=== PATIENT | male | born 1995 | race Caucasian/White ===

== ENCOUNTER 2020-01-30 | Emergency (ER) | payer MEDICAID ==
[~2020-01-30] MED LIST: AZTH250C PO; IBP800T PO
--- OUTSIDE RECORDS SUMMARY | 2020-01-30 00:08 | XMS REPORT ---
Author Author Balbir Jackson Doctor Organization [facility] Address Unknown Phone Unavailable Care Team Providers Care Digital Art Director Name Role Phone Migration, Doctor Unavailable Unavailable PROBLEMS Type Condition ICD9-CM Code IPV63-HA Code Onset Dates Condition S tatus SNOMED Code Problem Need for prophylactic vaccination and inoculation, Influen za V04.81 Active 129853374 Problem Acute sinusitis, unspecified 461.9 A ctive 04346399 Problem Nondependent tobacco use disorder 305.1 Active 422143559 Problem Basic learning disability, reading F81.0 Active 277461777 Problem Observation of other suspected mental condition V71.09 Active 028233808 Problem Constipation, unspecified constipation type K59.00 Active 25500154 Problem Manic disorder, recurrent episode, unspecified 296.10 Active 854339528 Problem Problems related to other legal circumstances Z65. 3 Active 07673975 Problem Unspecified intellectual disabilities F79 Active 45679015 Problem Anxiety disorder, unspecified F41.9 Active 277167572 ALLERGIES No Information ENCOUNTERS Encounter Location Date Diagnosis [facility] [id number] [place] [address] November, Pharyngitis due to Streptococcus species J02.0 [facility] [address] [facility] [id number] [address] [place] [address] Jan, Abdominal pain R10.9 and Con stipation, unspecified constipation type K59.00 [facility] [address] [id number] [place] [address] Mar, Anxiety disorder, unspecified F41.9 ; Ba sic learning disability, reading F81.0 ; Unspecified intellectual disabilities F79 and Problems related to other legal circumstances Z65.3 [facility] [id number] [place] [address] Oct, [facility] [address] [address] Oct, [facility] [address] [facility] [id number] [place] [address] Jul, [facility] [address] [id number] [place] [address] Jul, [facility] [address] [id number] [place] [address] Mar, [facility] [address] [id number] [place] [address] Mar, [facility] [address] [facility] [id number] [place] [address] Dec, [facility] [address] [id number] [place] [address] Dec, [facility] [address] [id number] [place] [address] Oct, [facility] [address] [id number] [place] [address] Oct, [facility] [address] [id number] [place] [address] Oct, [facility] [address] [id number] [place] [address] Oct, [facility] [address] [id number] [place] [address] Sep, [facility] [address] [id number] [place] [address] Sep, [facility] [address] [id number] [place] [address] Sep, [facility] [address] [id number] [place] [address] Sep, [facility] [address] [id number] [place] [address] Sep, [facility] [address] [id number] [place] [address] Sep, [facility] [address] [id number] [place] [address] Sep, [facility] [address] [id number] [place] [address] Sep, [facility] [address] [id number] [place] [address] Aug, [facility] [address] [id number] [place] [address] Aug, [facility] [id number] [place] [address] Aug, [facility] [address] [id number] [place] [address] Aug, [facility] [address] [id number] [place] [address] May, [facility] [id number] [place] [address] May, [facility] [id number] [place] [address] Jan, [facility] [address] [id number] [place] [address] Jan, [facility] [address] [id number] [place] [address] Jan, [facility] [address] [id number] [place] [address] Jan, [facility] [address] [id number] [place] [address] Jul, [facility] [address] [id number] [place] [address] May, IMMUNIZATIONS No Known Immunizations SOCIAL HISTORY Never Assessed REASON FOR VISIT PLAN OF CARE VITAL SIGNS MEDICATIONS No Known Medications RESULTS No Results PROCEDURES No Known procedures INSTRUCTIONS MEDICATIONS ADMINISTERED No Known Medications MEDICAL (GENERAL) HISTORY Type Description Date Medical History vasectomy
--- OUTSIDE RECORDS SUMMARY | 2020-01-30 00:08 | XMS REPORT ---
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 3 Active 19813549 Problem Unspecified intellectual disabilities F79 Active 94455440 Problem Anxiety disorder, unspecified F41.9 Active 214972979 ALLERGIES No Information ENCOUNTERS Encounter Location Date Diagnosis [facility] [place] [id number] [place] [address] November, Pharyngitis due to Streptococcus species J02.0 [facility] [address] [facility] [id number] [address] [address] Jan, Abdominal pain R10.9 and Con stipation, unspecified constipation type K59.00 [facility] [place] [id number] [place] [address] Mar, Anxiety disorder, unspecified F41.9 ; Ba sic learning disability, reading F81.0 ; Unspecified intellectual disabilities F79 and Problems related to other legal circumstances Z65.3 [facility] [place] [address] [address] Oct, [facility] [address] [id number] [place] [address] Oct, [facility] [address] [id number] [place] [address] Jul, [facility] [address] [id number] [place] [address] Jul, [facility] [address] [id number] [place] [address] Mar, [facility] [address] [id number] [place] [address] Mar, [facility] [address] [id number] [place] [address] Dec, [facility] [address] [id number] [place] [address] Dec, [facility] [address] [id number] [place] [address] Oct, [facility] [address] [id number] [place] [address] Oct, [facility] [address] [id number] [place] [address] Oct, [facility] [address] [id number] [place] [address] Oct, [facility] [address] [id number] [place] [address] Sep, [facility] [address] [id number] [place] [address] Sep, [facility] [address] [id number] [place] [address] Sep, [facility] [address] [id number] [place] [address] Sep, [facility] [address] [id number] [place] [address] Sep, [facility] [address] [id number] [place] [address] Sep, [facility] [place] [address] [id number] [place] [address] Sep, [facility] [place] [address] [id number] [place] [address] Sep, [facility] [place] [address] [id number] [place] [address] Aug, [facility] [place] [id number] [place] [address] Aug, [facility] [place] [id number] [place] [address] Aug, [facility] [place] [id number] [place] [address] Aug, [facility] [place] [id number] [place] [address] May, [facility] [place] [id number] [place] [address] May, [facility] [place] [id number] [place] [address] Jan, [facility] [place] [id number] [place] [address] Jan, [facility] [place] [address] [id number] [place] [address] Jan, [facility] [place] [id number] [place] [address] Jan, [facility] [place] [address] [id number] [place] [address] Jul, [facility] [place] [id number] [place] [address] May, IMMUNIZATIONS No Known Immunizations SOCIAL HISTORY Never Assessed REASON FOR VISIT PLAN OF CARE VITAL SIGNS MEDICATIONS No Known Medications RESULTS No Results PROCEDURES No Known procedures INSTRUCTIONS MEDICATIONS ADMINISTERED No Known Medications MEDICAL (GENERAL) HISTORY Type Description Date Medical History vasectomy
--- OUTSIDE RECORDS SUMMARY | 2020-01-30 00:08 | XMS REPORT ---
Author Author Balbir GOETZ Organization [facility] Address [address] [place] [address] Care Team Providers Care Computer Repairer Name Role Phone BISHNU IAN Unavailable PROBLEMS Type Condition ICD9-CM Code VZL88-IV Code Onset Dates Condition S tatus SNOMED Code Problem Need for prophylactic vaccination and inoculation, Influen za V04.81 Active 341119601 Problem Acute sinusitis, unspecified 461.9 A ctive 46687550 Problem Nondependent tobacco use disorder 305.1 Active 472739932 Problem Basic learning disability, reading F81.0 Active 716588154 Problem Observation of other suspected mental condition V71.09 Active 037329924 Problem Constipation, unspecified constipation type K59.00 Active 74311494 Problem Manic disorder, recurrent episode, unspecified 296.10 Active 033268558 Problem Problems related to other legal circumstances Z65. 3 Active 43294496 Problem Unspecified intellectual disabilities F79 Active 97895130 Problem Anxiety disorder, unspecified F41.9 Active 633664740 ALLERGIES No Information ENCOUNTERS Encounter Location Date Diagnosis [facility] [id number] [place] [address] November, Pharyngitis due to Streptococcus species J02.0 [facility] [address] [facility] [id number] [address] [address] Jan, Abdominal pain R10.9 and Con stipation, unspecified constipation type K59.00 [facility] [id number] [place] [address] Mar, Anxiety disorder, unspecified F41.9 ; Ba sic learning disability, reading F81.0 ; Unspecified intellectual disabilities F79 and Problems related to other legal circumstances Z65.3 [facility] [address] [address] Oct, [facility] [address] [id number] [place] [address] Oct, [facility] [address] [id number] [place] [address] Jul, [facility] [address] [id number] [place] [address] Jul, [facility] [address] [id number] [place] [address] Mar, [facility] [address] [id number] [place] [address] Mar, [facility] [address] [id number] [place] [address] Dec, [facility] [address] [id number] [place] [address] Dec, [facility] [address] [id number] [place] [address] Oct, [facility] [address] [id number] [place] [address] Oct, [facility] [address] [id number] [place] [address] Oct, [facility] [address] [id number] [place] [address] Oct, [facility] [address] [id number] [place] [address] Sep, [facility] [address] [id number] [place] [address] Sep, [facility] [address] [id number] [place] [address] Sep, [facility] [address] [id number] [place] [address] Sep, [facility] [address] [id number] [place] [address] Sep, [facility] [address] [id number] [place] [address] Sep, [facility] [address] [id number] [place] [address] Sep, [facility] [address] [id number] [place] [address] Sep, [facility] [address] [id number] [place] [address] Aug, [facility] [id number] [place] [address] Aug, [facility] [id number] [place] [address] Aug, [facility] [id number] [place] [address] Aug, [facility] [id number] [place] [address] May, [facility] [id number] [place] [address] May, [facility] [id number] [place] [address] Jan, [facility] [id number] [place] [address] Jan, [facility] [address] [id number] [place] [address] Jan, [facility] [id number] [place] [address] Jan, [facility] [address] [id number] [place] [address] Jul, [facility] [id number] [place] [address] May, IMMUNIZATIONS No Known Immunizations SOCIAL HISTORY Never Assessed REASON FOR VISIT PLAN OF CARE VITAL SIGNS MEDICATIONS No Known Medications RESULTS No Results PROCEDURES Procedure Date Ordered Result Body Site PSYCHO TESTING BY HANDYMAN Sep 07, 2013 INSTRUCTIONS MEDICATIONS ADMINISTERED No Known Medications MEDICAL (GENERAL) HISTORY Type Description Date Medical History vasectomy
--- OUTSIDE RECORDS SUMMARY | 2020-01-30 00:08 | XMS REPORT ---
Author Author Balbir GOETZ Organization [facility] [place] Address [address] [place] [address] Care Team Providers Care Addresser Name Role Phone BISHNU IAN Unavailable PROBLEMS Type Condition ICD9-CM Code TDI21-ZW Code Onset Dates Condition S tatus SNOMED Code Problem Need for prophylactic vaccination and inoculation, Influen za V04.81 Active 961992663 Problem Acute sinusitis, unspecified 461.9 A ctive 89680824 Problem Nondependent tobacco use disorder 305.1 Active 473080786 Problem Basic learning disability, reading F81.0 Active 546568911 Problem Observation of other suspected mental condition V71.09 Active 673496933 Problem Constipation, unspecified constipation type K59.00 Active 30356027 Problem Manic disorder, recurrent episode, unspecified 296.10 Active 793751000 Problem Problems related to other legal circumstances Z65. 3 Active 27989727 Problem Unspecified intellectual disabilities F79 Active 59514129 Problem Anxiety disorder, unspecified F41.9 Active 802554395 ALLERGIES No Information ENCOUNTERS Encounter Location Date Diagnosis [facility] [place] [id number] [place] [address] November, Pharyngitis due to Streptococcus species J02.0 [facility] [address] [facility] [id number] [address] [address] Jan, Abdominal pain R10.9 and Con stipation, unspecified constipation type K59.00 [facility] [place] [id number] [place] [address] Mar, Anxiety disorder, unspecified F41.9 ; Ba sic learning disability, reading F81.0 ; Unspecified intellectual disabilities F79 and Problems related to other legal circumstances Z65.3 [facility] [place] [address] [address] Oct, [facility] [address] [id number] [place] [address] Oct, [facility] [address] [id number] [place] [address] Jul, [facility] [address] [id number] [place] [address] Jul, [facility] [address] [id number] [place] [address] Mar, [facility] [address] [id number] [place] [address] Mar, [facility] [address] [id number] [place] [address] Dec, [facility] [address] [id number] [place] [address] Dec, [facility] [address] [id number] [place] [address] Oct, [facility] [address] [id number] [place] [address] Oct, [facility] [address] [id number] [place] [address] Oct, [facility] [address] [id number] [place] [address] Oct, [facility] [address] [id number] [place] [address] Sep, [facility] [address] [id number] [place] [address] Sep, [facility] [address] [id number] [place] [address] Sep, [facility] [address] [id number] [place] [address] Sep, [facility] [address] [id number] [place] [address] Sep, [facility] [address] [id number] [place] [address] Sep, [facility] [place] [address] [id number] [place] [address] Sep, [facility] [place] [address] [id number] [place] [address] Sep, [facility] [place] [address] [id number] [place] [address] Aug, [facility] [place] [id number] [place] [address] Aug, [facility] [place] [id number] [place] [address] Aug, [facility] [place] [id number] [place] [address] Aug, [facility] [place] [id number] [place] [address] May, [facility] [place] [id number] [place] [address] May, [facility] [place] [id number] [place] [address] Jan, [facility] [place] [id number] [place] [address] Jan, [facility] [place] [address] [id number] [place] [address] Jan, [facility] [place] [id number] [place] [address] Jan, [facility] [place] [address] [id number] [place] [address] Jul, [facility] [place] [id number] [place] [address] May, IMMUNIZATIONS No Known Immunizations SOCIAL HISTORY Never Assessed REASON FOR VISIT PLAN OF CARE VITAL SIGNS MEDICATIONS No Known Medications RESULTS No Results PROCEDURES No Known procedures INSTRUCTIONS MEDICATIONS ADMINISTERED No Known Medications MEDICAL (GENERAL) HISTORY Type Description Date Medical History vasectomy
--- OUTSIDE RECORDS SUMMARY | 2020-01-30 00:08 | XMS REPORT ---
Author Author Balbir GOETZ Organization [facility] Address [address] [place] [address] Care Team Providers Care Assemblies And Installations Inspector Name Role Phone BISHNU IAN Unavailable PROBLEMS Type Condition ICD9-CM Code FHV16-TO Code Onset Dates Condition S tatus SNOMED Code Problem Need for prophylactic vaccination and inoculation, Influen za V04.81 Active 451286767 Problem Acute sinusitis, unspecified 461.9 A ctive 98328697 Problem Nondependent tobacco use disorder 305.1 Active 258730638 Problem Basic learning disability, reading F81.0 Active 680613211 Problem Observation of other suspected mental condition V71.09 Active 665385048 Problem Constipation, unspecified constipation type K59.00 Active 53909896 Problem Manic disorder, recurrent episode, unspecified 296.10 Active 003137738 Problem Problems related to other legal circumstances Z65. 3 Active 01294733 Problem Unspecified intellectual disabilities F79 Active 13808530 Problem Anxiety disorder, unspecified F41.9 Active 351825525 ALLERGIES No Information ENCOUNTERS Encounter Location Date Diagnosis [facility] [id number] [place] [address] November, Pharyngitis due to Streptococcus species J02.0 [facility] [address] [facility] [id number] [address] [address] Jan, Abdominal pain R10.9 and Con stipation, unspecified constipation type K59.00 [facility] [id number] [place] [address] Mar, Anxiety disorder, unspecified F41.9 ; Ba sic learning disability, reading F81.0 ; Unspecified intellectual disabilities F79 and Problems related to other legal circumstances Z65.3 [facility] [address] [address] Oct, [facility] [address] [id number] [place] [address] Oct, [facility] [address] [id number] [place] [address] Jul, [facility] [address] [id number] [place] [address] Jul, [facility] [address] [id number] [place] [address] Mar, [facility] [address] [id number] [place] [address] Mar, [facility] [address] [id number] [place] [address] Dec, [facility] [address] [id number] [place] [address] Dec, [facility] [address] [id number] [place] [address] Oct, [facility] [address] [id number] [place] [address] Oct, [facility] [address] [id number] [place] [address] Oct, [facility] [address] [id number] [place] [address] Oct, [facility] [address] [id number] [place] [address] Sep, [facility] [address] [id number] [place] [address] Sep, [facility] [address] [id number] [place] [address] Sep, [facility] [address] [id number] [place] [address] Sep, [facility] [address] [id number] [place] [address] Sep, [facility] [address] [id number] [place] [address] Sep, [facility] [address] [id number] [place] [address] Sep, [facility] [address] [id number] [place] [address] Sep, [facility] [address] [id number] [place] [address] Aug, [facility] [id number] [place] [address] Aug, [facility] [id number] [place] [address] Aug, [facility] [id number] [place] [address] Aug, [facility] [id number] [place] [address] May, [facility] [id number] [place] [address] May, [facility] [id number] [place] [address] Jan, [facility] [id number] [place] [address] Jan, [facility] [address] [id number] [place] [address] Jan, [facility] [id number] [place] [address] Jan, [facility] [address] [id number] [place] [address] Jul, [facility] [id number] [place] [address] May, IMMUNIZATIONS No Known Immunizations SOCIAL HISTORY Never Assessed REASON FOR VISIT PLAN OF CARE VITAL SIGNS MEDICATIONS No Known Medications RESULTS No Results PROCEDURES Procedure Date Ordered Result Body Site PSYTX PT&/FAMILY 30 MINUTES Sep 21, 2013 INSTRUCTIONS MEDICATIONS ADMINISTERED No Known Medications MEDICAL (GENERAL) HISTORY Type Description Date Medical History vasectomy
--- OUTSIDE RECORDS SUMMARY | 2020-01-30 00:08 | XMS REPORT ---
Author Author Balbir GOETZ Organization [facility] Address [address] [place] [address] Care Team Providers Care Research Affiliate Name Role Phone BISHNU IAN Unavailable PROBLEMS Type Condition ICD9-CM Code MBC69-JE Code Onset Dates Condition S tatus SNOMED Code Problem Need for prophylactic vaccination and inoculation, Influen za V04.81 Active 208845133 Problem Acute sinusitis, unspecified 461.9 A ctive 86108142 Problem Nondependent tobacco use disorder 305.1 Active 537979805 Problem Basic learning disability, reading F81.0 Active 233847474 Problem Observation of other suspected mental condition V71.09 Active 888692986 Problem Constipation, unspecified constipation type K59.00 Active 88407349 Problem Manic disorder, recurrent episode, unspecified 296.10 Active 179020722 Problem Problems related to other legal circumstances Z65. 3 Active 99316335 Problem Unspecified intellectual disabilities F79 Active 96459499 Problem Anxiety disorder, unspecified F41.9 Active 517854615 ALLERGIES No Information ENCOUNTERS Encounter Location Date Diagnosis [facility] [id number] [place] [address] November, Pharyngitis due to Streptococcus species J02.0 [facility] [address] [facility] [id number] [place] [address] Jan, Abdominal pain R10.9 and Con stipation, unspecified constipation type K59.00 [facility] [id number] [place] [address] Mar, Anxiety disorder, unspecified F41.9 ; Ba sic learning disability, reading F81.0 ; Unspecified intellectual disabilities F79 and Problems related to other legal circumstances Z65.3 [facility] [address] [address] Oct, [facility] [address] [id number] [place] [address] Oct, [facility] [address] [id number] [place] [address] Jul, [facility] [address] [id number] [place] [address] Jul, [facility] [address] [id number] [place] [address] Mar, [facility] [address] [id number] [place] [address] Mar, [facility] [address] [id number] [place] [address] Dec, [facility] [address] [id number] [place] [address] Dec, [facility] [address] [id number] [place] [address] Oct, [facility] [address] [id number] [place] [address] Oct, [facility] [address] [id number] [place] [address] Oct, [facility] [address] [id number] [place] [address] Oct, [facility] [address] [id number] [place] [address] Sep, [facility] [address] [id number] [place] [address] Sep, [facility] [address] [id number] [place] [address] Sep, [facility] [address] [id number] [place] [address] Sep, [facility] [address] [id number] [place] [address] Sep, [facility] [address] [id number] [place] [address] Sep, [facility] [address] [id number] [place] [address] Sep, [facility] [address] [id number] [place] [address] Sep, [facility] [address] [id number] [place] [address] Aug, [facility] [id number] [place] [address] Aug, [facility] [id number] [place] [address] Aug, [facility] [id number] [place] [address] Aug, [facility] [id number] [place] [address] May, [facility] [id number] [place] [address] May, [facility] [id number] [place] [address] Jan, [facility] [id number] [place] [address] Jan, [facility] [address] [id number] [place] [address] Jan, [facility] [id number] [place] [address] Jan, [facility] [address] [id number] [place] [address] Jul, [facility] [id number] [place] [address] May, IMMUNIZATIONS No Known Immunizations SOCIAL HISTORY Never Assessed REASON FOR VISIT PLAN OF CARE VITAL SIGNS MEDICATIONS No Known Medications RESULTS No Results PROCEDURES No Known procedures INSTRUCTIONS MEDICATIONS ADMINISTERED No Known Medications MEDICAL (GENERAL) HISTORY Type Description Date Medical History vasectomy
--- OUTSIDE RECORDS SUMMARY | 2020-01-30 00:08 | XMS REPORT ---
Author Author Balbir GOETZ Organization [facility] Address [address] [place] [address] Care Team Providers Care Commercial Sheet Metal Foreman Name Role Phone BISHNU IAN Unavailable PROBLEMS Type Condition ICD9-CM Code QZE45-KY Code Onset Dates Condition S tatus SNOMED Code Problem Need for prophylactic vaccination and inoculation, Influen za V04.81 Active 331472818 Problem Acute sinusitis, unspecified 461.9 A ctive 60252054 Problem Nondependent tobacco use disorder 305.1 Active 028206662 Problem Basic learning disability, reading F81.0 Active 570094639 Problem Observation of other suspected mental condition V71.09 Active 983847124 Problem Constipation, unspecified constipation type K59.00 Active 41920534 Problem Manic disorder, recurrent episode, unspecified 296.10 Active 040138405 Problem Problems related to other legal circumstances Z65. 3 Active 43979647 Problem Unspecified intellectual disabilities F79 Active 22746266 Problem Anxiety disorder, unspecified F41.9 Active 211948786 ALLERGIES No Information ENCOUNTERS Encounter Location Date Diagnosis [facility] [id number] [place] [address] November, Pharyngitis due to Streptococcus species J02.0 [facility] [address] [facility] [id number] [address] [address] Jan, Abdominal pain R10.9 and Con stipation, unspecified constipation type K59.00 [facility] [id number] [place] [address] Mar, Anxiety disorder, unspecified F41.9 ; Ba sic learning disability, reading F81.0 ; Unspecified intellectual disabilities F79 and Problems related to other legal circumstances Z65.3 [facility] [address] [address] Oct, [facility] [address] [id number] [place] [address] Oct, [facility] [address] [id number] [place] [address] Jul, [facility] [address] [id number] [place] [address] Jul, [facility] [address] [id number] [place] [address] Mar, [facility] [address] [id number] [place] [address] Mar, [facility] [address] [id number] [place] [address] Dec, [facility] [address] [id number] [place] [address] Dec, [facility] [address] [id number] [place] [address] Oct, [facility] [address] [id number] [place] [address] Oct, [facility] [address] [id number] [place] [address] Oct, [facility] [address] [id number] [place] [address] Oct, [facility] [address] [id number] [place] [address] Sep, [facility] [address] [id number] [place] [address] Sep, [facility] [address] [id number] [place] [address] Sep, [facility] [address] [id number] [place] [address] Sep, [facility] [address] [id number] [place] [address] Sep, [facility] [address] [id number] [place] [address] Sep, [facility] [address] [id number] [place] [address] Sep, [facility] [address] [id number] [place] [address] Sep, [facility] [address] [id number] [place] [address] Aug, [facility] [id number] [place] [address] Aug, [facility] [id number] [place] [address] Aug, [facility] [id number] [place] [address] Aug, [facility] [id number] [place] [address] May, [facility] [id number] [place] [address] May, [facility] [id number] [place] [address] Jan, [facility] [id number] [place] [address] Jan, [facility] [address] [id number] [place] [address] Jan, [facility] [id number] [place] [address] Jan, [facility] [address] [id number] [place] [address] Jul, [facility] [id number] [place] [address] May, IMMUNIZATIONS No Known Immunizations SOCIAL HISTORY Never Assessed REASON FOR VISIT PLAN OF CARE VITAL SIGNS MEDICATIONS No Known Medications RESULTS No Results PROCEDURES No Known procedures INSTRUCTIONS MEDICATIONS ADMINISTERED No Known Medications MEDICAL (GENERAL) HISTORY Type Description Date Medical History vasectomy
--- OUTSIDE RECORDS SUMMARY | 2020-01-30 00:08 | XMS REPORT ---
Author Author Balbir Jackson Doctor Organization [facility] Address Unknown Phone Unavailable Care Team Providers Care Locum Tenens Psychiatrist Name Role Phone Migration, Doctor Unavailable Unavailable PROBLEMS Type Condition ICD9-CM Code TLC59-YG Code Onset Dates Condition S tatus SNOMED Code Problem Need for prophylactic vaccination and inoculation, Influen za V04.81 Active 151772710 Problem Acute sinusitis, unspecified 461.9 A ctive 07235890 Problem Nondependent tobacco use disorder 305.1 Active 565708545 Problem Basic learning disability, reading F81.0 Active 787577349 Problem Observation of other suspected mental condition V71.09 Active 245669599 Problem Constipation, unspecified constipation type K59.00 Active 92294977 Problem Manic disorder, recurrent episode, unspecified 296.10 Active 979607393 Problem Problems related to other legal circumstances Z65. 3 Active 60721582 Problem Unspecified intellectual disabilities F79 Active 16056963 Problem Anxiety disorder, unspecified F41.9 Active 140145437 ALLERGIES No Information ENCOUNTERS Encounter Location Date Diagnosis [facility] [address] [id number] [address] [place] [address] November, Pharyngitis due to Streptoco ccus species J02.0 [facility] [address] [id number] [address] [place] [address] Jan, Abdominal pain R10.9 and Con stipation, unspecified constipation type K59.00 [facility] [address] [facility] [id number] [address] [place] [address] 30 Mar, 2016 Anxiety disorder, unspecifie d F41.9 ; Basic learning disability, reading F81.0 ; Unspecified intellectual disabilities F79 and Problems related to other legal circumstances Z65.3 [facility] [address] [id number] [address] [place] [address] Oct, [facility] [address] [id number] [address] [place] [address] Oct, [facility] [address] [id number] [address] [place] [address], [place] [address] Jul, [facility] [address] [id number] [address] [place] [address], [place] [address] Jul, [facility] [address] [id number] [address] [place] [address], [place] [address] Mar, [facility] [address] [id number] [address] [place] [address], [place] [address] Mar, [facility] [address] [id number] [address] [place] [address], [place] [address] Dec, [facility] [address] [id number] [address] [place] [address], [place] [address] Dec, [facility] [address] [id number] [address] [place] [address], [place] [address] Oct, [facility] [address] [id number] [address] [place] [address], [place] [address] Oct, [facility] [address] [id number] [address] [place] [address], [place] [address] Oct, [facility] [address] [id number] [address] [place] [address], [place] [address] Oct, [facility] [address] [id number] [address] [place] [address], [place] [address] Sep, [facility] [address] [id number] [address] [place] [address], [place] [address] Sep, [facility] [address] [id number] [address] [place] [address], [place] [address] Sep, [facility] [address] [id number] [address] [place] [address], [place] [address] Sep, [facility] [address] [id number] [address] [place] [address], [place] [address] Sep, [facility] [address] [id number] [address] [place] [address] Sep, [facility] [address] [id number] [address] [place] [address] Sep, [facility] [address] [id number] [address] [place] [address] Sep, [facility] [address] [id number] [address] [place] [address] Aug, [facility] [address] [id number] [address] [place] [address] Aug, [facility] [address] [id number] [address] [place] [address] Aug, [facility] [address] [id number] [address] [place] [address] Aug, [facility] [address] [id number] [address] [place] [address] May, [facility] [address] [id number] [address] [place] [address] May, [facility] [address] [id number] [address] [place] [address] Jan, [facility] [address] [id number] [address] [place] [address] Jan, [facility] [address] [id number] [address] [place] [address] Jan, [facility] [address] [id number] [address] [place] [address] Jan, [facility] [address] [id number] [address] [place] [address] Jul, [facility] [address] [id number] [address] [place] [address] May, IMMUNIZATIONS No Known Immunizations SOCIAL HISTORY Never Assessed REASON FOR VISIT EMR-Yusuf PLAN OF CARE VITAL SIGNS MEDICATIONS No Known Medications RESULTS No Results PROCEDURES No Known procedures INSTRUCTIONS MEDICATIONS ADMINISTERED No Known Medications MEDICAL (GENERAL) HISTORY Type Description Date Medical History vasectomy
--- OUTSIDE RECORDS SUMMARY | 2020-01-30 00:08 | XMS REPORT ---
Author Author Balbir GOETZ Organization [facility] Address [address] [place] [address] Care Team Providers Care Revising Clerk Name Role Phone BISHNU IAN Unavailable PROBLEMS Type Condition ICD9-CM Code ALP91-VO Code Onset Dates Condition S tatus SNOMED Code Problem Need for prophylactic vaccination and inoculation, Influen za V04.81 Active 845357452 Problem Acute sinusitis, unspecified 461.9 A ctive 57365206 Problem Nondependent tobacco use disorder 305.1 Active 853164505 Problem Basic learning disability, reading F81.0 Active 853973377 Problem Observation of other suspected mental condition V71.09 Active 270015150 Problem Constipation, unspecified constipation type K59.00 Active 10627686 Problem Manic disorder, recurrent episode, unspecified 296.10 Active 131014727 Problem Problems related to other legal circumstances Z65. 3 Active 36315713 Problem Unspecified intellectual disabilities F79 Active 29097986 Problem Anxiety disorder, unspecified F41.9 Active 037801508 ALLERGIES No Information ENCOUNTERS Encounter Location Date Diagnosis [facility] [address] [id number] [address] [place] [address] November, Pharyngitis due to Streptoco ccus species J02.0 [facility] [address] [id number] [address] [place] [address] Jan, Abdominal pain R10.9 and Con stipation, unspecified constipation type K59.00 [facility] [address] [id number] [address] [place] [address] 30 Mar, 2016 Anxiety disorder, unspecifie d F41.9 ; Basic learning disability, reading F81.0 ; Unspecified intellectual disabilities F79 and Problems related to other legal circumstances Z65.3 [facility] [address] [id number] [address] [place] [address] 14 Oct, 2014 [facility] [address] [id number] [address] [place] [address], [place] [address] Oct, [facility] [address] [id number] [address] [place] [address], [place] [address] Jul, [facility] [address] [id number] [address] [place] [address], [place] [address] Jul, [facility] [address] [id number] [address] [place] [address], [place] [address] Mar, [facility] [address] [id number] [address] [place] [address], [place] [address] Mar, [facility] [address] [id number] [address] [place] [address], [place] [address] Dec, [facility] [address] [id number] [address] [place] [address], [place] [address] Dec, [facility] [address] [id number] [address] [place] [address], [place] [address] Oct, [facility] [address] [id number] [address] [place] [address], [place] [address] Oct, [facility] [address] [id number] [address] [place] [address], [place] [address] Oct, [facility] [address] [id number] [address] [place] [address], [place] [address] Oct, [facility] [address] [id number] [address] [place] [address], [place] [address] Sep, [facility] [address] [id number] [address] [place] [address], [place] [address] Sep, [facility] [address] [id number] [address] [place] [address], [place] [address] Sep, [facility] [address] [id number] [address] [place] [address], [place] [address] Sep, [facility] [address] [id number] [address] [place] [address], [place] [address] Sep, [facility] [address] [id number] [address] [place] [address], [place] [address] Sep, [facility] [address] [id number] [address] [place] [address], [place] [address] Sep, [facility] [address] [id number] [address] [place] [address], [place] [address] Sep, [facility] [address] [id number] [address] [place] [address], [place] [address] Aug, [facility] [address] [id number] [address] [place] [address], [place] [address] Aug, [facility] [address] [id number] [address] [place] [address], [place] [address] Aug, [facility] [address] [id number] [address] [place] [address], [place] [address] Aug, [facility] [address] [id number] [address] [place] [address], [place] [address] May, [facility] [address] [id number] [address] [place] [address], [place] [address] May, [facility] [address] [id number] [address] [place] [address], [place] [address] Jan, [facility] [address] [id number] [address] [place] [address], [place] [address] 18 Jan, 2013 [facility] [address] [id number] [address] [place] [address], [place] [address] 17 Jan, 2013 [facility] [address] [id number] [address] [place] [address], [place] [address] 16 Jan, 2013 [facility] [address] [id number] [address] [place] [address], [place] [address] Jul, [facility] [address] [id number] [address] [place] [address] [address] May, IMMUNIZATIONS No Known Immunizations SOCIAL HISTORY Never Assessed REASON FOR VISIT PLAN OF CARE VITAL SIGNS MEDICATIONS No Known Medications RESULTS No Results PROCEDURES Procedure Date Ordered Result Body Site PSYCH DIAGNOSTIC EVALUATION Aug 31, 2013 INSTRUCTIONS MEDICATIONS ADMINISTERED No Known Medications MEDICAL (GENERAL) HISTORY Type Description Date Medical History vasectomy
--- OUTSIDE RECORDS SUMMARY | 2020-01-30 00:08 | XMS REPORT ---
Author Author Balbir BURNS Organization [facility] Address [address] [place] [address] Care Team Providers Care Shiftman Name Role Phone KATY CHENTE Unavailable PROBLEMS Type Condition ICD9-CM Code XEB35-WF Code Onset Dates Condition S tatus SNOMED Code Problem Need for prophylactic vaccination and inoculation, Influen za V04.81 Active 618704648 Problem Acute sinusitis, unspecified 461.9 A ctive 51195971 Problem Nondependent tobacco use disorder 305.1 Active 683898416 Problem Basic learning disability, reading F81.0 Active 038914042 Problem Observation of other suspected mental condition V71.09 Active 327420722 Problem Constipation, unspecified constipation type K59.00 Active 16302630 Problem Manic disorder, recurrent episode, unspecified 296.10 Active 345029991 Problem Problems related to other legal circumstances Z65. 3 Active 66515628 Problem Unspecified intellectual disabilities F79 Active 62340802 Problem Anxiety disorder, unspecified F41.9 Active 140354489 ALLERGIES No Information ENCOUNTERS Encounter Location Date Diagnosis [facility] [address] [id number] [address] [place] [address] November, Pharyngitis due to Streptoco ccus species J02.0 [facility] [address] [id number] [address] [place] [address] Jan, Abdominal pain R10.9 and Con stipation, unspecified constipation type K59.00 [facility] [address] [id number] [address] [place] [address] Mar, Anxiety disorder, unspecifie d F41.9 ; Basic learning disability, reading F81.0 ; Unspecified intellectual disabilities F79 and Problems related to other legal circumstances Z65.3 [facility] [address] [id number] [address] [place] [address] 14 Oct, 2014 [facility] [address] [id number] [address] [place] [address], [place] [address] Oct, [facility] [address] [id number] [address] [place] [address], [place] [address] Jul, [facility] [address] [id number] [address] [place] [address], [place] [address] Jul, [facility] [address] [id number] [address] [place] [address], [place] [address] Mar, [facility] [address] [id number] [address] [place] [address], [place] [address] Mar, [facility] [address] [id number] [address] [place] [address], [place] [address] Dec, [facility] [address] [id number] [address] [place] [address], [place] [address] Dec, [facility] [address] [id number] [address] [place] [address], [place] [address] Oct, [facility] [address] [id number] [address] [place] [address], [place] [address] Oct, [facility] [address] [id number] [address] [place] [address], [place] [address] Oct, [facility] [address] [id number] [address] [place] [address], [place] [address] Oct, [facility] [address] [id number] [address] [place] [address], [place] [address] Sep, [facility] [address] [id number] [address] [place] [address], [place] [address] Sep, [facility] [address] [id number] [address] [place] [address], [place] [address] Sep, [facility] [address] [id number] [address] [place] [address], [place] [address] Sep, [facility] [address] [id number] [address] [place] [address], [place] [address] Sep, [facility] [address] [id number] [address] [place] [address], [place] [address] Sep, [facility] [address] [id number] [address] [place] [address], [place] [address] Sep, [facility] [address] [id number] [address] [place] [address], [place] [address] Sep, [facility] [address] [id number] [address] [place] [address], [place] [address] Aug, [facility] [address] [id number] [address] [place] [address], [place] [address] Aug, [facility] [address] [id number] [address] [place] [address], [place] [address] Aug, [facility] [address] [id number] [address] [place] [address], [place] [address] Aug, [facility] [address] [id number] [address] [place] [address], [place] [address] May, [facility] [address] [id number] [address] [place] [address], [place] [address] May, [facility] [address] [id number] [address] [place] [address], [place] [address] Jan, [facility] [address] [id number] [address] [place] [address], [place] [address] Jan, [facility] [address] [id number] [address] [place] [address], [place] [address] 17 Jan, 2013 [facility] [address] [id number] [address] [place] [address], [place] [address] Jan, [facility] [address] [id number] [address] [place] [address], [place] [address] Jul, [facility] [address] [id number] [address] [place] [address], [place] [address] May, IMMUNIZATIONS No Known Immunizations SOCIAL HISTORY Never Assessed REASON FOR VISIT PLAN OF CARE VITAL SIGNS Height 70 in 2014-07-18 Weight 137.6 lbs 2014-07-18 Temperature 99.4 degrees Fahrenheit 2014-07-18 Heart Rate 84 bpm 2014-07-18 Respiratory Rate 16 2014-07-18 Blood pressure systolic 122 mmHg 2014-07-18 Blood pressure diastolic 78 mmHg 2014-07-18 MEDICATIONS No Known Medications RESULTS No Results PROCEDURES No Known procedures INSTRUCTIONS MEDICATIONS ADMINISTERED No Known Medications MEDICAL (GENERAL) HISTORY Type Description Date Medical History vasectomy
--- OUTSIDE RECORDS SUMMARY | 2020-01-30 00:08 | XMS REPORT ---
Author Author Balbir Jackson Doctor Organization [facility] Address Unknown Phone Unavailable Care Team Providers Care Insurance Loss Control Surveyor Name Role Phone Migration, Doctor Unavailable Unavailable PROBLEMS Type Condition ICD9-CM Code DUK27-WN Code Onset Dates Condition S tatus SNOMED Code Problem Need for prophylactic vaccination and inoculation, Influen za V04.81 Active 700494091 Problem Acute sinusitis, unspecified 461.9 A ctive 49118632 Problem Nondependent tobacco use disorder 305.1 Active 585051455 Problem Basic learning disability, reading F81.0 Active 946993618 Problem Observation of other suspected mental condition V71.09 Active 310944545 Problem Constipation, unspecified constipation type K59.00 Active 31973422 Problem Manic disorder, recurrent episode, unspecified 296.10 Active 312128686 Problem Problems related to other legal circumstances Z65. 3 Active 59729616 Problem Unspecified intellectual disabilities F79 Active 64877679 Problem Anxiety disorder, unspecified F41.9 Active 187869651 ALLERGIES No Information ENCOUNTERS Encounter Location Date Diagnosis [facility] [place] [address] [id number] [address] [place] [address] November, Pharyngitis due to Streptoco ccus species J02.0 [facility] [address] [id number] [address] [place] [address] Jan, Abdominal pain R10.9 and Con stipation, unspecified constipation type K59.00 [facility] [place] [address] [id number] [address] [place] [address] Mar, Anxiety disorder, unspecifie d F41.9 ; Basic learning disability, reading F81.0 ; Unspecified intellectual disabilities F79 and Problems related to other legal circumstances Z65.3 [facility] [place] [address] [id number] [address] [place] [address] Oct, [facility] [place] [address] [id number] [address] [place] [address] Oct, [facility] [address] [id number] [address] [place] [address], [place] [address] Jul, [facility] [address] [id number] [address] [place] [address], [place] [address] Jul, [facility] [address] [id number] [address] [place] [address], [place] [address] Mar, [facility] [address] [id number] [address] [place] [address], [place] [address] Mar, [facility] [address] [id number] [address] [place] [address], [place] [address] Dec, [facility] [address] [id number] [address] [place] [address], [place] [address] Dec, [facility] [address] [id number] [address] [place] [address], [place] [address] Oct, [facility] [address] [id number] [address] [place] [address], [place] [address] Oct, [facility] [address] [id number] [address] [place] [address], [place] [address] Oct, [facility] [address] [id number] [address] [place] [address], [place] [address] Oct, [facility] [address] [id number] [address] [place] [address], [place] [address] Sep, [facility] [address] [id number] [address] [place] [address], [place] [address] Sep, [facility] [address] [id number] [address] [place] [address], [place] [address] Sep, [facility] [address] [id number] [address] [place] [address], [place] [address] Sep, [facility] [address] [id number] [address] [place] [address], [place] [address] Sep, [facility] [place] [address] [id number] [address] [place] [address] Sep, [facility] [address] [id number] [address] [place] [address] Sep, [facility] [place] [address] [id number] [address] [place] [address] Sep, [facility] [place] [address] [id number] [address] [place] [address] Aug, [facility] [place] [address] [id number] [address] [place] [address], [place] [address] Aug, [facility] [place] [address] [id number] [address] [place] [address] Aug, [facility] [place] [address] [id number] [address] [place] [address] Aug, [facility] [place] [address] [id number] [address] [place] [address] May, [facility] [place] [address] [id number] [address] [place] [address] May, [facility] [place] [address] [id number] [address] [place] [address] Jan, [facility] [place] [address] [id number] [address] [place] [address] Jan, [facility] [place] [address] [id number] [address] [place] [address] Jan, [facility] [place] [address] [id number] [address] [place] [address] Jan, [facility] [place] [address] [id number] [address] [place] [address] Jul, [facility] [place] [address] [id number] [address] [place] [address] May, IMMUNIZATIONS No Known Immunizations SOCIAL HISTORY Never Assessed REASON FOR VISIT PLAN OF CARE VITAL SIGNS MEDICATIONS No Known Medications RESULTS No Results PROCEDURES No Known procedures INSTRUCTIONS MEDICATIONS ADMINISTERED No Known Medications MEDICAL (GENERAL) HISTORY Type Description Date Medical History vasectomy
--- OUTSIDE RECORDS SUMMARY | 2020-01-30 00:08 | XMS REPORT ---
Author Author Balbir LAND Organization [facility] Address [address] [place] [address] Care Team Providers Care Zinc Skimmer Name Role Phone SHANDA GRAEME Unavailable PROBLEMS Type Condition ICD9-CM Code HUN23-WW Code Onset Dates Condition S tatus SNOMED Code Problem Need for prophylactic vaccination and inoculation, Influen za V04.81 Active 384963550 Problem Acute sinusitis, unspecified 461.9 A ctive 32256866 Problem Nondependent tobacco use disorder 305.1 Active 426281471 Problem Basic learning disability, reading F81.0 Active 048927515 Problem Observation of other suspected mental condition V71.09 Active 694694484 Problem Constipation, unspecified constipation type K59.00 Active 98437803 Problem Manic disorder, recurrent episode, unspecified 296.10 Active 832927648 Problem Problems related to other legal circumstances Z65. 3 Active 02649088 Problem Unspecified intellectual disabilities F79 Active 11061202 Problem Anxiety disorder, unspecified F41.9 Active 968821569 ALLERGIES No Information ENCOUNTERS Encounter Location Date Diagnosis [facility] [address] [id number] [place] [address] November, Pharyngitis due to Streptococcus species J02.0 [facility] [address] [facility] [id number] [address], [place] [address] Jan, Abdominal pain R10.9 and Con stipation, unspecified constipation type K59.00 [facility] [address] [id number] [place] [address] Mar, Anxiety disorder, unspecified F41.9 ; Ba sic learning disability, reading F81.0 ; Unspecified intellectual disabilities F79 and Problems related to other legal circumstances Z65.3 [facility] [address] [id number] [place] [address] Oct, [facility] [address] [id number] [place] [address] Oct, [facility] [address] [id number] [place] [address] Jul, [facility] [address] [id number] [place] [address] Jul, [facility] [address] [id number] [place] [address] Mar, [facility] [address] [facility] [id number] [place] [address] Mar, [facility] [address] [id number] [place] [address] Dec, [facility] [address] [id number] [place] [address] Dec, [facility] [address] [id number] [place] [address] Oct, [facility] [address] [id number] [place] [address] Oct, [facility] [address] [id number] [place] [address] Oct, [facility] [address] [id number] [place] [address] Oct, [facility] [address] [id number] [place] [address] Sep, [facility] [address] [id number] [place] [address] Sep, [facility] [address] [id number] [place] [address] Sep, [facility] [address] [id number] [place] [address] Sep, [facility] [address] [id number] [place] [address] Sep, [facility] [address] [id number] [place] [address] Sep, [facility] [address] [id number] [place] [address] Sep, [facility] [address] [id number] [place] [address] Sep, [facility] [id number] [place] [address] Aug, [facility] [id number] [place] [address] Aug, [facility] [id number] [place] [address] Aug, [facility] [id number] [place] [address] Aug, [facility] [id number] [place] [address] May, [facility] [id number] [place] [address] May, [facility] [id number] [place] [address] Jan, [facility] [id number] [place] [address] Jan, [facility] [id number] [place] [address] Jan, [facility] [id number] [place] [address] Jan, [facility] [address] [id number] [place] [address] Jul, [facility] [id number] [place] [address] May, IMMUNIZATIONS No Known Immunizations SOCIAL HISTORY Never Assessed REASON FOR VISIT PLAN OF CARE VITAL SIGNS MEDICATIONS No Known Medications RESULTS No Results PROCEDURES No Known procedures INSTRUCTIONS MEDICATIONS ADMINISTERED No Known Medications MEDICAL (GENERAL) HISTORY Type Description Date Medical History vasectomy
--- OUTSIDE RECORDS SUMMARY | 2020-01-30 00:09 | XMS REPORT ---
Author Author Balbir CABA [facility] Address [address] [place] [address] Care Team Providers Care Insurance Risk Analyst Name Role Phone SHERRIE CABA Unavailable PROBLEMS Type Condition ICD9-CM Code IIJ35-OV Code Onset Dates Condition S tatus SNOMED Code Problem Need for prophylactic vaccination and inoculation, Influen za V04.81 Active 731870428 Problem Nondependent tobacco use disorder 305.1 Active 656413219 Problem Acute sinusitis, unspecified 461.9 A ctive 09309123 Problem Observation of other suspected mental condition V71.09 Active 947312298 Problem Constipation, unspecified constipation type K59.00 Active 11922817 Problem Basic learning disability, reading F81.0 Active 490290568 Problem Problems related to other legal circumstances Z65. 3 Active 57329843 Problem Manic disorder, recurrent episode, unspecified 296.10 Active 773755214 Problem Anxiety disorder, unspecified F41.9 Active 616770916 Problem Unspecified intellectual disabilities F79 Active 29834188 ALLERGIES No Known Allergies ENCOUNTERS Encounter Location Date Diagnosis [facility] [address] [id number] [address] [place] [address] November, Pharyngitis due to Streptoco ccus species J02.0 [facility] [address] [id number] [address] [place] [address] Jan, Abdominal pain R10.9 and Con stipation, unspecified constipation type K59.00 [facility] [address] [id number] [address] [place] [address] Mar, Anxiety disorder, unspecifie d F41.9 ; Basic learning disability, reading F81.0 ; Unspecified intellectual disabilities F79 and Problems related to other legal circumstances Z65.3 [facility] [address] [id number] [address] [place] [id number] 14 Oct, 2014 [facility] [address] [id number] [address] [place] [address], [place] [address] Oct, [facility] [address] [id number] [address] [place] [address], [place] [address] Jul, [facility] [address] [id number] [address] [place] [address], [place] [address] Jul, [facility] [address] [id number] [address] [place] [address], [place] [address] Mar, [facility] [address] [id number] [address] [place] [address], [place] [address] Mar, [facility] [address] [id number] [address] [place] [address], [place] [address] Dec, [facility] [address] [id number] [address] [place] [address], [place] [address] Dec, [facility] [address] [id number] [address] [place] [address], [place] [address] Oct, [facility] [address] [id number] [address] [place] [address], [place] [address] Oct, [facility] [address] [id number] [address] [place] [address], [place] [address] Oct, [facility] [address] [id number] [address] [place] [address], [place] [address] Oct, [facility] [address] [id number] [address] [place] [address], [place] [address] Sep, [facility] [address] [id number] [address] [place] [address], [place] [address] Sep, [facility] [address] [id number] [address] [place] [address], [place] [address] Sep, [facility] [address] [id number] [address] [place] [address], [place] [address] Sep, [facility] [address] [id number] [address] [place] [address], [place] [address] Sep, [facility] [address] [id number] [address] [place] [address], [place] [address] Sep, [facility] [address] [id number] [address] [place] [address], [place] [address] Sep, [facility] [address] [id number] [address] [place] [address], [place] [address] Sep, [facility] [address] [id number] [address] [place] [address], [place] [address] Aug, [facility] [address] [id number] [address] [place] [address], [place] [address] Aug, [facility] [address] [id number] [address] [place] [address], [place] [address] Aug, [facility] [address] [id number] [address] [place] [address], [place] [address] Aug, [facility] [address] [id number] [address] [place] [address], [place] [address] May, [facility] [address] [id number] [address] [place] [address], [place] [address] May, [facility] [address] [id number] [address] [place] [address], [place] [address] Jan, [facility] [address] [id number] [address] [place] [address], [place] [address] Jan, [facility] [address] [id number] [address] [place] [address], [place] [address] 17 Jan, 2013 [facility] [address] [id number] [address] [place] [address], [place] [address] 16 Jan, 2013 [facility] [address] [id number] [address] [place] [address], [place] [address] Jul, [facility] [address] [id number] [address] [place] [address] May, IMMUNIZATIONS No Known Immunizations SOCIAL HISTORY Never Assessed REASON FOR VISIT Sore throat-twoodenMA, hurts to swallow PLAN OF CARE Activity Details Follow Up prn Reason: VITAL SIGNS Height 70 in 2017-12-20 Weight 132.6 lbs 2017-12-20 Temperature 99.1 degrees Fahrenheit 2017-12-20 Heart Rate 64 bpm 2017-12-20 Respiratory Rate 16 2017-12-20 BMI 19.02 kg/m2 2017-12-20 Blood pressure systolic 120 mmHg 2017-12-20 Blood pressure diastolic 80 mmHg 2017-12-20 MEDICATIONS Medication Instructions Dosage Frequency Start Date End Date Duration S tatus Amoxicillin 500 mg Orally 2 times a day 1 capsule 12h November, 18 November, 10 day(s) Active Augmentin 875-125 mg 1 tablet by Oral route 2 times pe r day for 14 day(s) Jul, Not-Taking RESULTS Name Result Date Reference Range STREP A (IN HOUSE) 2017-12-20 STREP A Positive Control + Lot # [id number] Exp date [id number] PROCEDURES Procedure Date Ordered Result Body Site STREP A ASSAY W/OPTIC December 20, 2017 INSTRUCTIONS MEDICATIONS ADMINISTERED No Known Medications MEDICAL (GENERAL) HISTORY Type Description Date Medical History vasectomy
--- OUTSIDE RECORDS SUMMARY | 2020-01-30 00:09 | XMS REPORT ---
Author Author Balbir Jackson Doctor Organization [facility] Address Unknown Phone Unavailable Care Team Providers Care Dairy Inspector Name Role Phone Migration, Doctor Unavailable Unavailable PROBLEMS Type Condition ICD9-CM Code [id number] Code Onset Dates Condition S tatus SNOMED Code Problem Need for prophylactic vaccination and inoculation, Influen za V04.81 Active 481876449 Problem Acute sinusitis, unspecified 461.9 A ctive 04176426 Problem Nondependent tobacco use disorder 305.1 Active 416485905 Problem Basic learning disability, reading F81.0 Active 456794542 Problem Observation of other suspected mental condition V71.09 Active 926367237 Problem Constipation, unspecified constipation type K59.00 Active 41265710 Problem Manic disorder, recurrent episode, unspecified 296.10 Active 947696697 Problem Problems related to other legal circumstances Z65. 3 Active 96920374 Problem Unspecified intellectual disabilities F79 Active 56750835 Problem Anxiety disorder, unspecified F41.9 Active 124662313 ALLERGIES No Information ENCOUNTERS Encounter Location Date Diagnosis [facility] [address] [id number] [address] [place] [address] November, Pharyngitis due to Streptoco ccus species J02.0 [facility] [address] [id number] [address] [place] [address] Jan, Abdominal pain R10.9 and Con stipation, unspecified constipation type K59.00 [facility] [address] [facility] [id number] [address] [place] [address] Mar, Anxiety disorder, unspecifie d F41.9 ; Basic learning disability, reading F81.0 ; Unspecified intellectual disabilities F79 and Problems related to other legal circumstances Z65.3 [facility] [address] [id number] [address] [place] [address] Oct, [facility] [address] [id number] [address] [place] [address] Oct, [facility] [address] [id number] [address] [place] [address], [place] [address] Jul, [facility] [address] [id number] [address] [place] [address], [place] [address] Jul, [facility] [address] [id number] [address] [place] [address], [place] [address] Mar, [facility] [address] [id number] [address] [place] [address], [place] [address] Mar, [facility] [address] [id number] [address] [place] [address], [place] [address] Dec, [facility] [address] [id number] [address] [place] [address], [place] [address] Dec, [facility] [address] [id number] [address] [place] [address], [place] [address] Oct, [facility] [address] [id number] [address] [place] [address], [place] [address] Oct, [facility] [address] [id number] [address] [place] [address], [place] [address] Oct, [facility] [address] [id number] [address] [place] [address], [place] [address] Oct, [facility] [address] [id number] [address] [place] [address], [place] [address] Sep, [facility] [address] [id number] [address] [place] [address], [place] [address] Sep, [facility] [address] [id number] [address] [place] [address], [place] [address] Sep, [facility] [address] [id number] [address] [place] [address], [place] [address] Sep, [facility] [address] [id number] [address] [place] [address], [place] [address] Sep, [facility] [address] [id number] [address] [place] [address] Sep, [facility] [address] [id number] [address] [place] [address] Sep, [facility] [address] [id number] [address] [place] [address] Sep, [facility] [address] [id number] [address] [place] [address] Aug, [facility] [address] [id number] [address] [place] [address] Aug, [facility] [address] [id number] [address] [place] [address] Aug, [facility] [address] [id number] [address] [place] [address] Aug, [facility] [address] [id number] [address] [place] [address] May, [facility] [address] [id number] [address] [place] [address] May, [facility] [address] [id number] [address] [place] [address] Jan, [facility] [address] [id number] [address] [place] [address] Jan, [facility] [address] [id number] [address] [place] [address] Jan, [facility] [address] [id number] [address] [place] [address] Jan, [facility] [address] [id number] [address] [place] [address] Jul, [facility] [address] [id number] [address] [place] [address] May, IMMUNIZATIONS No Known Immunizations SOCIAL HISTORY Never Assessed REASON FOR VISIT EMR-Yusuf PLAN OF CARE VITAL SIGNS MEDICATIONS Medication Instructions Dosage Frequency Start Date End Date Duration S tatus Augmentin 875-125 mg 1 tablet by Oral route 2 times pe r day for 14 day(s) Jul, Active RESULTS No Results PROCEDURES No Known procedures INSTRUCTIONS MEDICATIONS ADMINISTERED No Known Medications MEDICAL (GENERAL) HISTORY Type Description Date Medical History vasectomy
--- OUTSIDE RECORDS SUMMARY | 2020-01-30 00:09 | XMS REPORT ---
Author Author Balbir VELÁSQUEZ [facility] eClinical[employer] Address Unknown Phone Unavailable Care Team Providers Care Pipe Threader Name Role Phone JONATHAN VELÁSQUEZ CP Unavailable Allergies No Known Allergies Problems Problem Type Condition Code Onset Dates Condition Statu s Assessment Anxiety disorder, unspecified F41.9 Active Problem Need for prophylactic vaccination and inoculation, Inf luenza V04.81 Active Problem Observation of other suspected mental condition V71.09 Active Problem Basic learning disability, reading F81.0 Active Problem Unspecified intellectual disabilities F79 Active Problem Anxiety disorder, unspecified F41.9 Active Problem Nondependent tobacco use disorder 305.1 Active Problem Acute sinusitis, unspecified 461.9 Active Problem Problems related to other legal circumstances Z65.3 Active Problem Manic disorder, recurrent episode, unspecified 296.10 Active Assessment Problems related to other legal circumstances Z65.3 Active Assessment Unspecified intellectual disabilities F79 Active Assessment Basic learning disability, reading F81.0 Active Medications No Known Medications Procedures Procedure Coding System Code Date Psych diagnostic evaluation, new patient CPT-4 72305 Mar 31, 2016 Results No Known Results Summary Purpose eClinicalWorks Submission
--- OUTSIDE RECORDS SUMMARY | 2020-01-30 00:09 | XMS REPORT ---
Author Author Balbir Jackson Doctor Organization [facility] Address Unknown Phone Unavailable Care Team Providers Care Dairy Helper Name Role Phone Migration, Doctor Unavailable Unavailable PROBLEMS Type Condition ICD9-CM Code QYY53-ZA Code Onset Dates Condition S tatus SNOMED Code Problem Need for prophylactic vaccination and inoculation, Influen za V04.81 Active 702585578 Problem Acute sinusitis, unspecified 461.9 A ctive 43987928 Problem Nondependent tobacco use disorder 305.1 Active 900424099 Problem Basic learning disability, reading F81.0 Active 714795615 Problem Observation of other suspected mental condition V71.09 Active 311017705 Problem Constipation, unspecified constipation type K59.00 Active 55306809 Problem Manic disorder, recurrent episode, unspecified 296.10 Active 411055401 Problem Problems related to other legal circumstances Z65. 3 Active 78345118 Problem Unspecified intellectual disabilities F79 Active 13702407 Problem Anxiety disorder, unspecified F41.9 Active 485503827 ALLERGIES No Information ENCOUNTERS Encounter Location Date Diagnosis [facility] [place] [address] [id number] [address] [place] [phone] November, Pharyngitis due to Streptoco ccus species J02.0 [facility] [address] [id number] [address] [place] [address] Jan, Abdominal pain R10.9 and Con stipation, unspecified constipation type K59.00 [facility] [place] [address] [facility] [id number] [address] [place] [address] Mar, Anxiety disorder, unspecifie d F41.9 ; Basic learning disability, reading F81.0 ; Unspecified intellectual disabilities F79 and Problems related to other legal circumstances Z65.3 [facility] [place] [address] [id number] [address] [place] [phone] Oct, [facility] [place] [address] [id number] [address] [place] [address] Oct, [facility] [address] [id number] [address] [place] [address], [place] [address] Jul, [facility] [address] [id number] [address] [place] [address], [place] [address] Jul, [facility] [address] [id number] [address] [place] [address], [place] [address] Mar, [facility] [address] [id number] [address] [place] [address], [place] [address] Mar, [facility] [address] [id number] [address] [place] [address], [place] [address] Dec, [facility] [address] [id number] [address] [place] [address], [place] [address] Dec, [facility] [address] [id number] [address] [place] [address], [place] [address] Oct, [facility] [address] [id number] [address] [place] [address], [place] [address] Oct, [facility] [address] [id number] [address] [place] [address], [place] [address] Oct, [facility] [address] [id number] [address] [place] [address], [place] [address] Oct, [facility] [address] [id number] [address] [place] [address], [place] [address] Sep, [facility] [address] [id number] [address] [place] [address], [place] [address] Sep, [facility] [address] [id number] [address] [place] [address], [place] [address] Sep, [facility] [address] [id number] [address] [place] [address], [place] [address] Sep, [facility] [address] [id number] [address] [place] [address], [place] [address] Sep, [facility] [place] [address] [id number] [address] [place] [phone] Sep, [facility] [address] [id number] [address] [place] [phone] Sep, [facility] [place] [address] [id number] [address] [place] [phone] Sep, [facility] [place] [address] [id number] [address] [place] [phone] Aug, [facility] [place] [address] [id number] [address] [place] [address] Aug, [facility] [place] [address] [id number] [address] [place] [address] Aug, [facility] [place] [address] [id number] [address] [place] [phone] Aug, [facility] [place] [address] [id number] [address] [place] [address] May, [facility] [place] [address] [id number] [address] [place] [phone] May, [facility] [place] [address] [id number] [address] [place] [phone] Jan, [facility] [place] [address] [id number] [address] [place] [phone] Jan, [facility] [place] [address] [id number] [address] [place] [phone] Jan, [facility] [place] [address] [id number] [address] [place] [phone] Jan, [facility] [place] [address] [id number] [address] [place] [phone] Jul, [facility] [place] [address] [id number] [address] [place] [phone] May, IMMUNIZATIONS No Known Immunizations SOCIAL HISTORY Never Assessed REASON FOR VISIT EMR-Yusuf PLAN OF CARE VITAL SIGNS MEDICATIONS No Known Medications RESULTS No Results PROCEDURES No Known procedures INSTRUCTIONS MEDICATIONS ADMINISTERED No Known Medications MEDICAL (GENERAL) HISTORY Type Description Date Medical History vasectomy
--- OUTSIDE RECORDS SUMMARY | 2020-01-30 00:09 | XMS REPORT | Continuity of Care Document ---
Author Author [facility] Organization [facility] Address Unknown Phone Unavailable Care Team Providers Care Net Repairer Name Role Phone INOCENCIO BROOKS MD PP Insurance Providers Payer Name Policy Number Subscriber Name Relationship Thaddeus Kanc[employer] [id number] Claudia Loredo 01 Self / Same As Patient Advance Directives Directive Response Recor ded Date Advance Directives N 8:10pm Health Care Power of Sample Builder N 12/23/12 8:10pm Organ Donor N 12/23/12 8 :10pm Problems No Known Problems or Medical conditions. Social History History Response Recorde d Date/Time Alcohol Use Denies Use 0 12/23/12 8:10pm Recreational Drug Use N 12/23/12 8:10pm Recent Foreign Travel N 12/23/12 8:10pm Recent Infectious Disease Exposure N 12/23/12 8:10pm Hospitalization with Isolation Denies 12/23/12 8:10pm Sexually Transmitted Disease N 12/23/12 8:10pm HIV/AIDS N 12/23/12 8:10 pm Allergies, Adverse Reactions, Alerts Allergen Type Severity Reaction Last Updated No Known Drug Allergies 03/06/12 Medications Medication Dose Units Route Sig Qty Days Azithromycin (Zithromax) 1 Tab PO DAILY 4 Ibuprofen (Motrin) 800 Mg PO Q8HR PRN 30 Response Recorded Date/Time Status not known Unknown Results No Known Relevant Diagnostic Tests, Laboratory Data and/or Discharge Summary. Encounters Encounter Location Date/ Time Departed Emergency [facility] 12/23/12 8:07pm
--- OUTSIDE RECORDS SUMMARY | 2020-01-30 00:09 | XMS REPORT | Continuity of Care Document ---
Author Organization Unknown Address Unknown Phone Unavailable Allergies There is no data. Medications There is no data. 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 05/29/2010 TG HALEY DO 317 MILD MENTAL RETARDATION 05/29/2010 IAN GOETZ PHD 296.90 MO MOOD DIS NOS 05/29/2010 IAN GOETZ PHD 314.01 ADHD COMBINED 05/29/2010 IAN GOETZ PHD 317 MILD MENTAL RETARDATION 05/29/2010 IAN GOETZ PHD 296.90 MO MOOD DIS NOS 05/29/2010 IAN GOETZ PHD 314.01 ADHD COMBINED 05/29/2010 IAN GOETZ PHD 317 MILD MENTAL RETARDATION 05/29/2010 IAN GOETZ PHD 296.90 MO MOOD DIS NOS 05/29/2010 IAN GOETZ PHD 314.01 ADHD COMBINED 05/29/2010 IAN GOETZ PHD 317 MILD MENTAL RETARDATION 05/29/2010 CHENTE BURNS APRN 296.90 MO MOOD DIS NOS 05/29/2010 CHENTE BURNS APRN R 314.01 ADHD COMBINED 05/29/2010 CHENTE BURNS APRN 317 MILD MENTAL RETARDATION 02/14/2013 BRIANA HUGHES MD 296.10 MANIC DISORDER (NO Hx OF DEPRESSION), RECURRENT EPISOD E 02/14/2013 TG HALEY DO 296.10 MANIC DISORDER (NO Hx OF DEPRESSION), RECURRENT EPISODE 02/14/2013 IAN GOETZ PHD 296.10 MANIC DISORDER (NO Hx OF DEPRESSION), RECURRENT EPISOD E 02/14/2013 IAN GOETZ PHD 296.10 MANIC DISORDER (NO Hx OF DEPRESSION), RECURRENT EPISOD E 02/14/2013 IAN GOETZ PHD 296.10 MANIC DISORDER (NO Hx OF DEPRESSION), RECURRENT EPISOD E 02/14/2013 CHENTE BURNS APRN 296.10 MANIC DISORDER (NO Hx OF DEPRESSION), RECURRENT EPISOD E 08/24/2013 TG HALEY DO V04.81 FLU SHOT 08/24/2013 IAN GOETZ PHD V04.81 FLU SHOT 08/24/2013 IAN GOETZ PHD V04.81 FLU SHOT 08/24/2013 IAN GOETZ PHD V04.81 FLU SHOT 08/24/2013 CHENTE BURNS APRN V04.81 FLU SHOT 08/31/2013 IAN GOETZ PHD V71.09 OBSERVATION OF OTHER SUSPECTED MENTAL CONDITION 08/31/2013 IAN GOETZ PHD V71.09 OBSERVATION OF OTHER SUSPECTED MENTAL CONDITION 08/31/2013 IAN GOETZ PHD V71.09 OBSERVATION OF OTHER SUSPECTED MENTAL CONDITION 08/31/2013 CHENTE BURNS APRN V71.09 OBSERVATION OF OTHER SUSPECTED MENTAL CONDITION 07/18/2014 CHENTE BURNS APRN 305.1 TOBACCO ABUSE 07/18/2014 CHENTE BURNS APRN 461.9 SINUSITIS ACUTE Procedures Code [place] [address] PSYC H DIAGNOSTIC EVALUATION 09/01/2013 64104 PSYC HO TESTING 1 HR W TECH 09/07/2013 69923 PSYT X PT&/FAMILY 30 MINUTES 09/21/2013 Results There is no data. Encounters ACCT No. Visit Date/Time Discharge Status Pt. Type Provider Facility Loc./Unit Complaint [id number] 07/18/2014 15:05:00 07/18/2014 23:59: 59 [facility] Outpatient CHENTE BURNS APRN [id number] 09/21/2013 11:53:00 09/21/2013 23:59: 59 [facility] Outpatient IAN GOETZ PHD [id number] 09/07/2013 10:06:00 09/07/2013 23:59: 59 CLS Outpatient IAN GOETZ PHD [id number] 08/31/2013 09:45:00 08/31/2013 23:59: 59 CLS Outpatient IAN GOETZ PHD [id number] 08/24/2013 15:03:00 08/24/2013 23:59: 59 CLS Outpatient SUDHA MAHMOOD TG K [id number] 02/14/2013 10:32:00 02/14/2013 23:59: 59 CLS Outpatient BRIANA HUGHES MD [id number] 12/23/2012 20:07:00 013 21:01:00 DIS Emergency [id number] 12/20/2017 11:20:00 12/20/2017 23:59:5 9 [facility]
[2020-01-30] MEDS ORDERED: NS IV 1000 ML 1,000 ML IV STA (00:51)
[2020-01-30 01:10] LABS: BASOPHILS % (AUTO) 0 % (0-10); EOSINOPHILS # (AUTO) 0.2 10^3/uL (0.0-0.3); EOSINOPHILS % (AUTO) 2 % (0-10); HEMATOCRIT 43 % (40-54); HEMOGLOBIN 15.3 G/DL (13.3-17.7); LYMPHOCYTES # (AUTO) 2.4 X 10^3 (1.0-4.0); LYMPHOCYTES % (AUTO) 20 % (12-44); MEAN CORPUSCULAR HEMOGLOBIN 31 PG (25-34); MEAN CORPUSCULAR HGB CONC 36 G/DL (32-36); MEAN CORPUSCULAR VOLUME 86 FL (80-99); MEAN PLATELET VOLUME 10.9 FL (7.4-10.4); MONOCYTES # (AUTO) 0.9 X 10^3 (0.0-1.0); MONOCYTES % (AUTO) 8 % (0-12); NEUTROPHILS # (AUTO) 8.7 X 10^3 (1.8-7.8); NEUTROPHILS % (AUTO) 71 % (42-75); PLATELET COUNT 265 10^3/uL (130-400); RED CELL DISTRIBUTION WIDTH 12.2 % (10.0-14.5); WHITE BLOOD COUNT 12.3 10^3/uL (4.3-11.0)
[2020-01-30 01:19] LABS: ALBUMIN 4.7 GM/DL (3.2-4.5); CHLORIDE 106 MMOL/L (98-107); POTASSIUM 3.8 MMOL/L (3.6-5.0); SODIUM 141 MMOL/L (135-145)
[2020-01-30 01:20] LABS: CALCIUM 9.8 MG/DL (8.5-10.1)
[2020-01-30 01:21] LABS: GLUCOSE 115 MG/DL (70-105)
[2020-01-30 01:22] LABS: TOTAL PROTEIN 7.5 GM/DL (6.4-8.2)
[2020-01-30 01:23] LABS: BILIRUBIN,TOTAL 0.3 MG/DL (0.1-1.0); CARBON DIOXIDE 24 MMOL/L (21-32)
[2020-01-30 01:25] LABS: ALKALINE PHOSPHATASE 87 U/L (40-136); GFR ESTIMATED > 60
[2020-01-30 01:26] LABS: BUN/CREATININE RATIO 6
[2020-01-30 01:28] LABS: ALANINE AMINOTRANSFERASE 7 U/L (0-55); MAGNESIUM 2.4 MG/DL (1.6-2.4)
[2020-01-30 01:32] LABS: ERYTHROCYTE SEDIMENTATION RATE 2 MM/HR (0-15)
[2020-01-30 01:48] LABS: TSH (THYROID ANALYZER) 2.38 UIU/ML (0.35-4.94)
--- NOTE | 2020-01-30 03:07 | ED Chest Pain ---
General Chief Complaint: Chest Pain Stated Complaint: CP Nursing Triage Note: TO ED VIA POV AND PLACED IN ROOM 10 UNDER COVID-19 PRECAUTIONS R/T C/O CP. PT STATES HE HAD CP ON AND OFF FOR 2 DAYS, SQUEEZING IN SENSATION TO LEFT CHEST. STATES HE TOOK ADULT ASA APPROX 2150. DENIES FEVER, COUGH, SOA. DENIES BEING EXPOSED TO COVID-19. Nursing Sepsis Screen: No Definite Risk Source: patient Exam Limitations: no limitations History of Present Illness Date Seen by Provider: Jan 30, 2020 Time Seen by Provider: 02:28 Initial Comments Here with complaint of intermittent chest tightness for the last few days. He is concerned because he has history of heart murmur and there is heart disease in his family. Denies fever, cough, shortness of breath. Denies any history of exposure. States that he has been staying at home and has limited contact with last contact of any sort about 10 days ago when he went swimming with a friend. Family was concerned because of history of heart problems. Did take 3 aspirin at home earlier. Denies any chest pain or concerns currently. Timing/Duration: intermittent, 2-3 days Severity/Quality: mild, tightness Location: central Radiation: no radiation Activities at Onset: none Prior CP/Workup: no prior chest pain, no prior cardiac workup Modifying Factors: improves with rest ASA po CAFE OR RESTAURANT MANAGER: Yes NTG SL CAFE OR RESTAURANT MANAGER: No Associated Symptoms: No abdominal pain, No back pain, No diaphoresis, No dizziness, No edema, No fatigue, No fever/chills, No heartburn, No nausea/vomiting, No shortness of breath, No weakness Allergies and Home Medications Allergies Coded Allergies: No Known Drug Allergies (Unverified , 03/06/12) Home Medications Azithromycin 250 Mg Tablet, 1 TAB PO DAILY Prescribed by: JAN VIDAL on 12/23/122046 Ibuprofen 800 Mg Tab, 800 MG PO Q8HR PRN Prescribed by: JAN VIDAL on 12/23/122046 Patient Home Medication List Home Medication List Reviewed: Yes Review of Systems Review of Systems Constitutional: see HPI EENTM: No Nose Pain, No Throat Pain, No Throat Swelling Respiratory: Denies Cough, Denies Shortness of Air Cardiovascular: See HPI Gastrointestinal: No Symptoms Reported Genitourinary: No Symptoms Reported Musculoskeletal: no symptoms reported All Other Systems Reviewed Negative Unless Noted: Yes Past Ldsbekh-Izecto-Qycqwg Hx Past Med/Social Hx: Reviewed Nursing Past Med/Soc Hx Patient Social History Alcohol Use: Denies Use Recreational Drug Use: No Smoking Status: Current Everyday Smoker Type Used: Cigarettes Recent Foreign Travel: No Contact w/Someone Who Travel: No Recent Infectious Disease Expo: No Recent Hopitalizations: No Physical Abuse: No Sexual Abuse: No Mistreated: No Fear: No Immunizations Up To Date Tetanus Booster (TDap): Unknown Seasonal Allergies Seasonal Allergies: No Past Medical History Surgeries: Yes Vasectomy Respiratory: No Cardiac: Yes Heart Murmur Neurological: No Reproductive Disorders: No Sexually Transmitted Disease: No HIV/AIDS: No Genitourinary: No Gastrointestinal: No Musculoskeletal: No Endocrine: No Cancer: No Psychosocial: Yes ADD/ADHD Integumentary: No Blood Disorders: No Adverse Reaction/Blood Tranf: No Family Medical History Reviewed Nursing Family Hx No Pertinent Family Hx Physical Exam Vital Signs Vital Signs - First Documented 01/30/20 00:30 Temp 36.9 Pulse 89 Resp 16 B/P (MAP) 147/100 (116) O2 Delivery Room Air Capillary Refill : Less Than 3 Seconds Height, Weight, BMI Height: '" Weight: lbs. oz. kg; BMI Method:Stated General Appearance: No Apparent Distress, WD/WN HEENT: PERRL/EOMI, Normal ENT Inspection, Pharynx Normal Neck: Non Tender, Supple Respiratory: Lungs Clear, Normal Breath Sounds Cardiovascular: Regular Rate, Rhythm, No Murmur Gastrointestinal: Non Tender, Soft Extremity: Normal Range of Motion, Non Tender Neurologic/Psychiatric: Alert, Oriented x3 Skin: Normal Color, Warm/Dry Progress/Results/Core Measures Results/Orders Lab Results Laboratory Tests Test 01/30/20 01:00 Range/Units White Blood Count 12.3 H 4.3-11.0 10^3/uL Red Blood Count 4.99 4.35-5.85 10^6/uL Hemoglobin 15.3 13.3-17.7 G/DL Hematocrit 43 40-54 % Mean Corpuscular Volume 86 80-99 FL Mean Corpuscular Hemoglobin 31 25-34 PG Mean Corpuscular Hemoglobin Concent 36 32-36 G/DL Red Cell Distribution Width 12.2 10.0-14.5 % Platelet Count 265 130-400 10^3/uL Mean Platelet Volume 10.9 H 7.4-10.4 FL Neutrophils (%) (Auto) 71 42-75 % Lymphocytes (%) (Auto) 20 12-44 % Monocytes (%) (Auto) 8 0-12 % Eosinophils (%) (Auto) 2 0-10 % Basophils (%) (Auto) 0 0-10 % Neutrophils # (Auto) 8.7 H 1.8-7.8 X 10^3 Lymphocytes # (Auto) 2.4 1.0-4.0 X 10^3 Monocytes # (Auto) 0.9 0.0-1.0 X 10^3 Eosinophils # (Auto) 0.2 0.0-0.3 10^3/uL Basophils # (Auto) 0.0 0.0-0.1 10^3/uL Erythrocyte Sedimentation Rate 2 0-15 MM/HR D-Dimer < 0.27 0.00-0.49 UG/ML Sodium Level 141 135-145 MMOL/L Potassium Level 3.8 3.6-5.0 MMOL/L Chloride Level 106 98-107 MMOL/L Carbon Dioxide Level 24 21-32 MMOL/L Anion Gap 11 5-14 MMOL/L Blood Urea Nitrogen 5 L 7-18 MG/DL Creatinine 0.90 0.60-1.30 MG/DL Estimat Glomerular Filtration Rate > 60 BUN/Creatinine Ratio 6 Glucose Level 115 H 70-105 MG/DL Calcium Level 9.8 8.5-10.1 MG/DL Corrected Calcium 8.5-10.1 MG/DL Magnesium Level 2.4 1.6-2.4 MG/DL Total Bilirubin 0.3 0.1-1.0 MG/DL Aspartate Amino Transf (AST/SGOT) 11 5-34 U/L Alanine Aminotransferase (ALT/SGPT) 7 0-55 U/L Alkaline Phosphatase 87 40-136 U/L Lactate Dehydrogenase 161 125-220 U/L Troponin I < 0.028 <0.028 NG/ML C-Reactive Protein High Sensitivity 0.02 0.00-0.50 MG/DL Total Protein 7.5 6.4-8.2 GM/DL Albumin 4.7 H 3.2-4.5 GM/DL Procalcitonin 0.01 <0.10 NG/ML TSH Wilkin Testing 2.38 0.35-4.94 UIU/ML My Orders Orders - JAN VIDAL MD Cbc With Automated Diff (01/30/20 00:51) Comprehensive Metabolic Panel (01/30/20 00:51) Hs C Reactive Protein (01/30/20 00:51) Fibrin Degradation Products (01/30/20 00:51) Magnesium (01/30/20 00:51) Thyroid Analyzer (01/30/20 00:51) Troponin I (01/30/20 00:51) Procalcitonin (Pct) (01/30/20 00:51) Erythrocyte Sedimentation Rate (01/30/20 00:51) LDH (01/30/20 00:51) Chest 1 View, Ap/Pa Only (01/30/20 00:51) Ekg Tracing (01/30/20 00:51) Ns Iv 1000 Ml (Sodium Chloride 0.9%) (01/30/20 00:51) Ed Iv/Invasive Line Start (01/30/20 00:51) Vital Signs/I&O 01/30/20 01/30/20 00:30 00:30 Temp 36.9 Pulse 89 Resp 16 B/P (MAP) 147/100 (116) O2 Delivery Room Air Room Air Blood Pressure Mean: 116 Progress Progress Note : Progress Note Seen and evaluated. IV, labs, normal saline 1 L bolus and chest x-ray ordered. Initially seen using COVID precautions. Monitor patient. 0305: Still without chest pain. No acute findings. I did discuss his findings with him and recommended follow-up with the clinic and cardiology if there is concerns related to heart disease. No findings of heart concerns currently. Patient reports murmur but I was unable to appear that currently. Heart rate in the 80s. O2 sat in the upper 90s. No concerning findings on labs or chest x-ray. Discharged home with return precautions. Patient verbalize understanding instructions and agreement with plan. Diagnostic Imaging Diagonstic Imaging: Xray Plain Films/CT/US/NM/MRI: chest Comments No acute findings Reviewed: Reviewed by Me Departure Impression Primary Impression: Chest pain Qualified Codes: R07.9 - Chest pain, unspecified Disposition: 01 HOME, SELF-CARE Condition: Improved Departure-Patient Inst. Decision time for Depature: 03:06 Referrals: LOREN HIGUERA MD FACP FACC CCDS Tariq SHOOK MD, BASHAR J MD SALVADOR, LISA A MD (PCP/Family) Primary Care Physician [facility] Patient Instructions: Chest Pain (DC) Add. Discharge Instructions: All discharge instructions reviewed with patient and/or family. Voiced understanding. Follow-up with your Dr. in a few days for recheck and further evaluation and referral to cardiology if indicated. Return for worse pain, fever, vomiting, weakness, breathing problems or other concerns as needed. Copy Copies To 1: TG HALEY TIMOTHY D MD Jan 30, 2020 03:07
[2020-01-30 03:12] VITALS: BP 121/78
--- NOTE | 2020-01-30 05:12 | Diagnostic Imaging Report ---
Indication: Chest pain Portable chest 1:04 AM Heart size and pulmonary vascularity are normal. Lungs are clear. There are no effusions or pneumothoraces. IMPRESSION: Negative chest Dictated by: Dictated on workstation # [id number]
== END 2020-01-30 03:14 | disposition home or self-care (01) ==
LOC: EDUNIT# → ER 00:03
DX: R07.9 Chest pain, unspecified (principal); R01.1 Cardiac murmur, unspecified; F90.9 Attention-deficit hyperactivity disorder, unspecified type; F17.210 Nicotine dependence, cigarettes, uncomplicated
CPT/HCPCS: 36415; 71045; 80053; 83615; 83735; 84145; 84443; 84484; 85025; 85379; 85652; 86141; 93005; 96360

== ENCOUNTER 2020-02-02 21:39 | Emergency (ER) | payer MEDICAID ==
[~2020-02-02] VITALS: Ht 180 cm; Wt 60.5 kg
--- OUTSIDE RECORDS SUMMARY | 2020-02-02 21:44 | XMS REPORT | Continuity of Care Document ---
Author Organization Unknown Address Unknown Phone Unavailable Allergies Active Description Code Type Severity Reaction Onset Reported/Identified Relationship to Patient Clinical Status Yes No Known Drug Allergies [id number] Drug Allergy Unknown N/A 03/06/2012 Medications There is no data. Problems Date [...] MOOD DIS NOS 05/29/2010 CHENTE BURNS APRN 314.01 ADHD COMBINED 05/29/2010 CHENTE BURNS APRN [...] Hx OF DEPRESSION), RECURRENT EPISOD E 08/24/2013 HALEY DO, TG K V04.81 FLU SHOT 08/24/2013 IAN GOETZ PHD [...] ACUTE Procedures Code Description [place] [address] PS H DIAGNOSTIC EVALUATION 09/01/2013 81894 PS HO TESTING 1 HR W TECH 09/07/2013 31622 PSYT X PT&/FAMILY 30 MINUTES 09/21/2013 Results Test Result Range Complete blood count (CBC) with automate d white blood cell (WBC) differential - 01/30/20 01:00 Blood leukocytes automated count (number/volume) 12.3 10*3/uL 4.3-11.0 Blood erythrocytes automated count (number/volume) 4.99 10*6/uL 4.35-5.85 Venous blood hemoglobin measurement (mass/volume) 15.3 g/dL 13.3-17.7 Blood hematocrit (volume fraction) 43 % 40-54 Automated erythrocyte mean corpuscular volume 86 [ foz_us] 80-99 Automated erythrocyte mean corpuscular h emoglobin (mass per erythrocyte) 31 pg 25-34 Automated erythrocyte mean corpuscular h emoglobin concentration measurement (mass/volume) 36 g/dL 32-36 Automated erythrocyte distribution width ratio 12. 2 % 10.0- 14.5 Automated blood platelet count (count/volume) 265 10*3/uL 130-400 Automated blood platelet mean volume measurement 10.9 [foz_us] 7.4-10.4 Automated blood neutrophils/100 leukocytes 71 % 42-75 Automated blood lymphocytes/100 leukocytes 20 % 12-44 Blood monocytes/100 leukocytes 8 % 0-12 Automated blood eosinophils/100 leukocytes 2 % 0-10 Automated blood basophils/100 leukocytes 0 % 0-10 Blood neutrophils automated count (number/volume) 8.7 10*3 1.8-7.8 Blood lymphocytes automated count (number/volume) 2.4 10*3 1.0-4.0 Blood monocytes automated count (number/volume) 0. 9 10*3 0.0-1.0 Automated eosinophil count 0.2 10*3/uL 0 .0-0.3 Automated blood basophil count (count/volume) 0.0 10*3/uL 0.0-0.1 Comprehensive metabolic panel - 01/30/20 01:00 Serum or plasma sodium measurement (moles/volume) 141 mmol/L 135-145 Serum or plasma potassium measurement (moles/volume) 3.8 mmol/L 3.6-5.0 Serum or plasma chloride measurement (moles/volume) 106 mmol/L 98-107 Carbon dioxide 24 mmol/L 21-32 Serum or plasma anion gap determination (moles/volume) 11 mmol/L 5-14 Serum or plasma urea nitrogen measurement (mass/volume ) 5 mg/dL 7-18 Serum or plasma creatinine measurement (mass/volume) 0.90 mg/dL 0.60-1.30 Serum or plasma urea nitrogen/creatinine mass ratio 6 NRG Serum or plasma creatinine measurement w ith calculation of estimated glomerular filtration rate > NRG Serum or plasma glucose measurement (mass/volume) 115 mg/dL 70-105 Serum or plasma calcium measurement (mass/volume) 9.8 mg/dL 8.5-10.1 Serum or plasma total bilirubin measurement (mass/volu me) 0.3 mg/dL 0.1-1.0 Serum or plasma alkaline phosphatase roberto surement (enzymatic activity/volume) 87 U/L 40-136 Serum or plasma aspartate aminotransfera se measurement (enzymatic activity/volume) 11 U/L 5-34 Serum or plasma alanine aminotransferase measurement (enzymatic activity/volume) 7 U/L 0-55 Serum or plasma protein measurement (mass/volume) 7.5 g/dL 6.4-8.2 Serum or plasma albumin measurement (mass/volume) 4.7 g/dL 3.2-4.5 Magnesium - 01/30/20 01:00 Magnesium 2.4 mg/dL 1.6-2.4 Serum ragweed IgE antibody assay - 01/29 01:00 Serum ragweed IgE antibody assay 161 U/L 125-220 PROCALCITONIN (PCT) - 01/30/20 01:00 PROCALCITONIN (PCT) 0.01 ng/mL <0.10 Fibrin D-dimer FEU measurement in platel et poor plasma (mass/volume) - 01/30/20 01:00 Fibrin D-dimer FEU measurement in platelet poor plasma (mass/volume) < ug/mL 0.00-0.49 Erythrocyte sedimentation rate by song gren method - 01/30/20 01:00 Erythrocyte sedimentation rate by westergren method 2 mm 0- 15 Serum or plasma troponin i.cardiac measu rement (mass/volume) - 01/30/20 01:00 Serum or plasma troponin i.cardiac measurement (mass/v olume) < ng/mL <0.028 Serum or plasma thyrotropin measurement by detection limit <=0.05 miu/l (units/volume) - 01/30/20 01:00 Serum or plasma thyrotropin measurement by detection limit <=0.05 miu/l (units/volume) 2.38 u[iU]/mL 0.35-4.94 Serum or plasma C reactive protein measu rement (mass/volume) - 01/30/20 01:00 Serum or plasma C reactive protein measurement (mass/v olume) 0.02 mg/dL 0.00-0.50 Encounters ACCT No. Visit Date/Time Discharge Status Pt. Type Provider Facility Loc./Unit Complaint [id number] 07/18/2014 15:05:00 07/18/2014 23:59: 59 [facility] Outpatient CHENTE BURNS APRN [id number] 09/21/2013 11:53:00 09/21/2013 23:59: 59 C[facility] Outpatient IAN GOETZ PHD [id number] 09/07/2013 10:06:00 09/07/2013 23:59: 59 CLS Outpatient IAN GOETZ PHD [id number] 08/31/2013 09:45:00 08/31/2013 23:59: 59 CLS Outpatient IAN GOETZ PHD [id number] 08/24/2013 15:03:00 08/24/2013 23:59: 59 CLS Outpatient SUDHA TG MAHMOOD [id number] 02/14/2013 10:32:00 02/14/2013 23:59: 59 CLS Outpatient BRIANA HUGHES MD [id number] 01/30/2020 00:03:00 020 03:14:00 DIS Emergency JAN VIDAL MD [facility] ER CP [id number] 12/23/2012 20:07:00 013 21:01:00 DIS Emergency [id number] 02/02/2020 21:40:[address] Emergency ELIJAH BAKER, EVELINA Talbot [facility] ER FS CHEST PAIN [id number] 02/01/2020 16:50:00 ACT Outpatient [facility]
[2020-02-02] MEDS ORDERED: FAMOTIDINE 20 MG (PEPCID) TABLET PO STA (23:04)
[2020-02-02 23:09] LABS: BACTERIA,URINE NEGATIVE /HPF; BILIRUBIN,URINE NEGATIVE (NEGATIVE); CLARITY,URINE CLEAR; COLOR,URINE YELLOW; GLUCOSE, URINE (UA) NEGATIVE (NEGATIVE); KETONES,URINE NEGATIVE (NEGATIVE); LEUKOCYTE ESTERASE ,URINE NEGATIVE (NEGATIVE); NITRITE,URINE NEGATIVE (NEGATIVE); PROTEIN,URINE NEGATIVE (NEGATIVE); RBC,URINE 0-2 /HPF
[2020-02-02] MEDS ORDERED: LIDOCAINE 2% VISCOUS 15 ML UDC PO ONE (23:15)
[2020-02-02] MEDS ORDERED: ANTACID SUSP 30 ML UDC (MYLANTA) PO ONE (23:15)
[2020-02-02] MEDS ORDERED: ACETAMINOPHEN 325 MG TABLET PO ONE (23:15)
[2020-02-02 23:46] LABS: BASOPHILS # (AUTO) 0.1 10^3/uL (0.0-0.1); BASOPHILS % (AUTO) 0 % (0-10); EOSINOPHILS # (AUTO) 0.4 10^3/uL (0.0-0.3); EOSINOPHILS % (AUTO) 4 % (0-10); HEMATOCRIT 45 % (40-54); HEMOGLOBIN 15.8 G/DL (13.3-17.7); LYMPHOCYTES % (AUTO) 27 % (12-44); MEAN CORPUSCULAR HEMOGLOBIN 31 PG (25-34); MEAN CORPUSCULAR HGB CONC 35 G/DL (32-36); MEAN CORPUSCULAR VOLUME 87 FL (80-99); MEAN PLATELET VOLUME 10.5 FL (7.4-10.4); MONOCYTES # (AUTO) 0.9 X 10^3 (0.0-1.0); MONOCYTES % (AUTO) 8 % (0-12); NEUTROPHILS # (AUTO) 6.8 X 10^3 (1.8-7.8); NEUTROPHILS % (AUTO) 61 % (42-75); PLATELET COUNT 258 10^3/uL (130-400); WHITE BLOOD COUNT 11.2 10^3/uL (4.3-11.0)
[2020-02-03 00:09] LABS: ALANINE AMINOTRANSFERASE 5 U/L (0-55); ALBUMIN 4.6 GM/DL (3.2-4.5); ALKALINE PHOSPHATASE 89 U/L (40-136); BILIRUBIN,TOTAL 0.4 MG/DL (0.1-1.0); BUN/CREATININE RATIO 5; CALCIUM 9.6 MG/DL (8.5-10.1); CARBON DIOXIDE 24 MMOL/L (21-32); CHLORIDE 98 MMOL/L (98-107); CREATININE SERUM 0.75 MG/DL (0.60-1.30); GFR ESTIMATED > 60; GLUCOSE 112 MG/DL (70-105); LIPASE 10 U/L (8-78); POTASSIUM 3.8 MMOL/L (3.6-5.0); SODIUM 137 MMOL/L (135-145)
--- NOTE | 2020-02-03 00:38 | ED Abdominal Pain ---
General Chief Complaint: Abdominal/GI Problems Stated Complaint: CHEST PAIN Nursing Triage Note: Pt complaining LLQ pain that started 3 days ago Sepsis Screen: No Definite Risk History of Present Illness Date Seen by Provider: Feb 02, 2020 Time Seen by Provider: 23:00 Initial Comments The patient is a 24-year-old male who presents for evaluation of 2 days of focal, mild left upper quadrant discomfort which radiates to the epigastrium. Location of discomfort has been stable. It is otherwise nonradiating. It seems to be a little worse with food and nothing seems to make it better. No ass ociated fevers, nausea or vomiting, upper respiratory congestion/rhinorrhea, cough, shortness of breath or chest pain of any kind, right-sided or lower abdominal pain of any kind, flank pain, back pain, dysuria or hematuria, groin pain/testicular or scrotal pain, changes in bowel habits. Patient is alert and pleasantly and appropriately interactive and in absolutely no acute distress upon initial evaluation here in the emergency department. Patient reports that it has been about 3 days into last had a bowel movement. He states this is typical for him. Allergies and Home Medications Allergies Coded Allergies: No Known Drug Allergies (Unverified , 03/06/12) Home Medications Azithromycin 250 Mg Tablet, 1 TAB PO DAILY Prescribed by: JAN VIDAL on 12/23/122046 Ibuprofen 800 Mg Tab, 800 MG PO Q8HR PRN Prescribed by: JAN VIDAL on 12/23/122046 Patient Home Medication List Home Medication List Reviewed: Yes Review of Systems Review of Systems Constitutional: see HPI All Other Systems Reviewed Negative Unless Noted: Yes (Negative excepted noted.) Past Ingflpo-Likptl-[place] Hx Past Med/Social Hx: Reviewed Nursing Past Med/Soc Hx Patient Social History Alcohol Use: Denies Use Recreational Drug Use: No Type Used: Cigarettes Recent Foreign Travel: No Contact w/Someone Who Travel: No Recent Infectious Disease Expo: No Recent Hopitalizations: No Physical Abuse: No Sexual Abuse: No Immunizations Up To Date Tetanus Booster (TDap): Unknown Seasonal Allergies Seasonal Allergies: No Past Medical History Surgeries: Yes Vasectomy Respiratory: No Cardiac: Yes Heart Murmur Neurological: No Reproductive Disorders: No Sexually Transmitted Disease: No HIV/AIDS: No Genitourinary: No Gastrointestinal: No Musculoskeletal: No Endocrine: No Cancer: No Psychosocial: Yes ADD/ADHD Integumentary: No Blood Disorders: No Adverse Reaction/Blood Tranf: No Family Medical History Reviewed Nursing Family Hx No Pertinent Family Hx Physical Exam Vital Signs Vital Signs - First Documented 02/02/20 21:55 Temp 37.2 Pulse 101 Resp 14 B/P (MAP) 135/80 (98) Pulse Ox 98 O2 Delivery Room Air Capillary Refill : Less Than 3 Seconds Height/Weight/BMI Height: '" Weight: lbs. oz. kg; 18.00 BMI Method:Stated General Appearance: no apparent distress Exam Comments This is a 24-year-old male appearing nontoxic and in no acute distress. Head is normocephalic and atraumatic. Neck is supple and nontender. Oropharynx is moist. Lungs are clear to auscultation at all stations. There is a normal S1 and S2 without rubs or gallops and capillary refill is appropriate, less than 2 seconds globally. Abdomen is soft and nondistended with very mild left upper quadrant greater than epigastric tenderness to palpation without rebound or guarding. There is absolutely no right-sided or lower quadrant abdominal tenderness to palpation. Skin is warm and dry without cyanosis, clubbing or edema. Psychiatrically, the patient demonstrates appropriate mood and affect and is alert. Progress/Results/Core Measures Results/Orders Lab Results Laboratory Tests Test 02/02/20 22:10 02/02/20 23:28 Range/Units Urine Color YELLOW Urine Clarity CLEAR Urine pH 7.0 5-9 Urine Specific [place] <=1.005 1.016-1.022 Urine Protein NEGATIVE NEGATIVE Urine Glucose (UA) NEGATIVE NEGATIVE Urine Ketones NEGATIVE NEGATIVE Urine Nitrite NEGATIVE NEGATIVE Urine Bilirubin NEGATIVE NEGATIVE Urine Urobilinogen 0.2 < = 1.0 MG/DL Urine Leukocyte Esterase NEGATIVE NEGATIVE Urine RBC (Auto) NEGATIVE NEGATIVE Urine RBC 0-2 /HPF Urine WBC NONE /HPF Urine Crystals NONE /LPF Urine Bacteria NEGATIVE /HPF Urine Casts NONE /LPF Urine Mucus NEGATIVE /LPF Urine Culture Indicated NO White Blood Count 11.2 H 4.3-11.0 10^3/uL Red Blood Count 5.15 4.35-5.85 10^6/uL Hemoglobin 15.8 13.3-17.7 G/DL Hematocrit 45 40-54 % Mean Corpuscular Volume 87 80-99 FL Mean Corpuscular Hemoglobin 31 25-34 PG Mean Corpuscular Hemoglobin Concent 35 32-36 G/DL Red Cell Distribution Width 12.0 10.0-14.5 % Platelet Count 258 130-400 10^3/uL Mean Platelet Volume 10.5 H 7.4-10.4 FL Neutrophils (%) (Auto) 61 42-75 % Lymphocytes (%) (Auto) 27 12-44 % Monocytes (%) (Auto) 8 0-12 % Eosinophils (%) (Auto) 4 0-10 % Basophils (%) (Auto) 0 0-10 % Neutrophils # (Auto) 6.8 1.8-7.8 X 10^3 Lymphocytes # (Auto) 3.0 1.0-4.0 X 10^3 Monocytes # (Auto) 0.9 0.0-1.0 X 10^3 Eosinophils # (Auto) 0.4 H 0.0-0.3 10^3/uL Basophils # (Auto) 0.1 0.0-0.1 10^3/uL Sodium Level 137 135-145 MMOL/L Potassium Level 3.8 3.6-5.0 MMOL/L Chloride Level 98 98-107 MMOL/L Carbon Dioxide Level 24 21-32 MMOL/L Anion Gap 15 H 5-14 MMOL/L Blood Urea Nitrogen 4 L 7-18 MG/DL Creatinine 0.75 0.60-1.30 MG/DL Estimat Glomerular Filtration Rate > 60 BUN/Creatinine Ratio 5 Glucose Level 112 H 70-105 MG/DL Calcium Level 9.6 8.5-10.1 MG/DL Corrected Calcium 8.5-10.1 MG/DL Total Bilirubin 0.4 0.1-1.0 MG/DL Aspartate Amino Transf (AST/SGOT) 9 5-34 U/L Alanine Aminotransferase (ALT/SGPT) 5 0-55 U/L Alkaline Phosphatase 89 40-136 U/L Total Protein 7.0 6.4-8.2 GM/DL Albumin 4.6 H 3.2-4.5 GM/DL Lipase 10 8-78 U/L My Orders Orders - EVELINA NAVA MD Cbc With Automated Diff (02/02/20 23:04) Comprehensive Metabolic Panel (02/02/20 23:04) Lipase (02/02/20 23:04) Ua Culture If Indicated (02/02/20 23:04) Lidocaine 2% Viscous 15 Ml (Xylocaine Vi (02/02/20 23:15) Famotidine Tablet (Pepcid Tablet) (02/02/20 23:04) Antacid Suspension (Mylanta Suspension (02/02/20 23:15) Acetaminophen Tablet/Caplet (Tylenol T (02/02/20 23:15) Abdomen (Kub) 1 View (02/02/20 23:04) Medications Given in ED Current Medications Medications Dose Ordered Sig/Toshia Route Start Time Stop Time Status Last Admin Dose Admin Acetaminophen 975 mg ONCE ONCE PO 02/02/20 23:15 02/02/20 23:16 DC 02/02/20 23:22 975 MG Al Hydrox/Mg Hydrox/Simethicone 30 ml ONCE ONCE PO 02/02/20 23:15 02/02/20 23:16 DC 02/02/20 23:22 30 ML Lidocaine HCl 15 ml ONCE ONCE PO 02/02/20 23:15 02/02/20 23:16 DC 02/02/20 23:22 15 ML Vital Signs/I&O 02/02/20 21:55 Temp 37.2 Pulse 101 Resp 14 B/P (MAP) 135/80 (98) Pulse Ox 98 O2 Delivery Room Air Blood Pressure Mean: 98 Progress Progress Note : Time: 00:36 Progress Note Well-appearing 24-year-old male with no prior abdominal surgical history who presents for evaluation of left upper quadrant and epigastric pain 2 days. Appears comfortable and is in no acute distress. Vital signs and clinical examination are reassuring. We'll check labs and urine and abdominal plain films and will then reevaluate. If workup is reassuring, anticipate discharge home with medication for symptomatically management to follow-up on Wednesday with primary care. Patient understands and agrees with this plan of care. 0000: Patient is resting comfortably upon reassessment and states that his discomfort is better. Mild leukocytosis noted in the setting of focal left upper quadrant discomfort for 2 days. Otherwise labs and imaging are nonacute. Evidence of increased stool load noted on abdominal plain films, without obstruction. We'll discharge home with MiraLAX, Tylenol and Pepcid with instructions to follow-up after the weekend with primary care as above. Patient understands and the meantime that if he feels worse is that of better or develops other new symptoms of concern that he will need to return to the emergency department right away for reevaluation. All questions are answered. Diagnostic Imaging Comments XR abd: Nonobstructive nonspecific BG pattern, EP interp Departure Impression Primary Impression: Left upper quadrant pain Additional Impression: Constipation Qualified Codes: K59.09 - Other constipation Disposition: HOME, SELF-CARE Condition: Improved Departure-Patient Inst. Referrals: INOCENCIO BROOKS MD (PCP/Family) Primary Care Physician Patient Instructions: No Instuctions Given Add. Discharge Instructions: Follow-up very closely with your primary care physician on Wednesday, immediately after the weekend, for a reevaluation of your symptoms and a discussion of next steps in care. Take the Pepcid twice a day for the next 1 week as prescribed. You may take Tylenol for pain, every 6 hours as needed. Take the MiraLAX twice a day to help move her bowels more regularly. Return to the emergency department right away with worsening symptoms of any kind or with any other new symptoms of concern. Scripts Acetaminophen (Tylenol) 325 Mg Capsule 650 MG PO Q6H for Pain, #30 CAP Prov: EVELINA NAVA MD 02/03/20 Famotidine (Pepcid) 20 Mg Tablet 20 MG PO BID for 7 Days, #14 TAB Prov: EVELINA NAVA MD 02/03/20 Polyethylene Glycol 3350 (Miralax) 17 Gm Powd.pack 17 GM PO BID, #527 GM Prov: EVELINA NAVA MD 02/03/20 EVELINA NAVA MD Feb 03, 2020 00:38
[2020-02-03] MEDS ORDERED: ACET325C7 PO (00:44)
[2020-02-03] MEDS ORDERED: FAMO-119 PO (00:44)
[2020-02-03] MEDS ORDERED: POLY17PO6 PO (00:44)
[2020-02-03 00:54] VITALS: BP 129/83
--- NOTE | 2020-02-03 07:15 | Diagnostic Imaging Report ---
Indication: Left lower quadrant pain KUB 11:19 PM Bowel gas pattern is normal. There are some linear calcifications in the left lower pelvis that are probably phleboliths. There are no masses seen. Osseous structures are unremarkable. IMPRESSION: Calcifications in the left lower pelvis are probably phleboliths but clinical correlation recommended as a ureteral calculus cannot be excluded Dictated by: Dictated on workstation # [id number]
== END 2020-02-03 00:56 | disposition home or self-care (01) ==
LOC: EDUNIT# 21:39 → ER FS 21:40
DX: R10.12 Left upper quadrant pain (principal); K59.09 Other constipation; F90.9 Attention-deficit hyperactivity disorder, unspecified type; Z87.891 Personal history of nicotine dependence
CPT/HCPCS: 36415; 74018; 80053; 81000; 83690; 85025